=== PATIENT | male | born 1965 | race Caucasian/White ===

== ENCOUNTER 2017-08-20 11:32 | Emergency (ER) | END 2017-08-20 17:55 | disposition home or self-care (01) ==

== ENCOUNTER 2017-10-30 11:30 | Emergency (ER) | payer OTHER ==
[~2017-10-30] VITALS: Ht 167.6 cm; Wt 97.1 kg
[~2017-10-30 11:30] MED LIST: ALBU90I INH; ALBU90OI; ALBU90OI61 INH; AMLO5 PO; AMOCLA875 PO; BUSP15 PO; CEPH500 PO; CHLO25 PO; CYCL10 PO; DOCU100 PO; Desyrel150 MG PO; FAMO40 PO; FOLI1 PO; GABA300 PO; GABA600 PO; HYDACE25S PR; HYDACE5 PO; HYDMOR2 PO; HYDR1TAB94 PO; Hydrochlorothia25 MG PO; Hydrocodone-Ap1 EA23 PO; IBUP600 PO; IBUP800 PO; LISI5 PO; LORA10ER PO; LOSARTAN POTAS100 MG PO; Librium25 MG PO; Lopressor 25 mg25 MG PO; Loratadine10 MG PO; METO50 PO; MULVITMIND PO; Multivitamin1 EAC2 PO; NAPR220 PO; NAPR500 PO; NASAL SPRAY; Norco 5-325 Ta1 EACH PO; OLME20 PO; OTC SINUS MEDS; OXYACE5T PO; OXYC5 PO; PROM25 PO; Percocet 10-321 EACH PO; RANI150 PO; RISP1 PO; SERT100 PO; SERT50 PO; SPIR25 PO; SULTRIDS PO; THIA100 PO; TRAM50 PO; TRAZ100 PO
[2017-10-30 12:11] LABS: BASOPHILS ABSOLUTE AUTO 0.05 K/mm3 (0.00-0.23); BASOPHILS PERCENT AUTO 1 % (0-2); EOSINOPHILS ABSOLUTE AUTO 0.01 K/mm3 (0.00-0.68); EOSINOPHILS PERCENT AUTO 0 % (0-6); Hematocrit 46.1 % (37.0-53.0); IMMATURE GRAN ABSOLUTE AUTO 0.02 K/mm3 (0.00-0.10); IMMATURE GRAN PERCENT AUTO 0 % (0-1); LYMPHOCYTES ABSOLUTE AUTO 2.19 K/mm3 (0.84-5.20); LYMPHOCYTES PERCENT AUTO 31 % (21-46); MONOCYTES ABSOLUTE AUTO 0.56 K/mm3 (0.16-1.47); MONOCYTES PERCENT AUTO 8 % (4-13); Mean Corpuscular HGB 33.7 pg (26.0-34.0); Mean Corpuscular HGB Conc 34.7 g/dL (31.5-36.5); Mean Corpuscular Volume 97 fL (80-100); NEUTROPHILS ABSOLUTE AUTO 4.34 K/mm3 (1.96-9.15); NEUTROPHILS PERCENT AUTO 61 % (41-73); Platelet Count 96 K/mm3 (150-400); RDW Standard Deviation 46.8 fL (35.1-46.3); Red Blood Cell Count 4.75 M/mm3 (4.30-5.90); White Blood Cell Count 7.17 K/mm3 (4.00-11.30)
[2017-10-30 12:52] LABS: Alanine Aminotransfer (ALT/SGP 66 U/L (12-78); Albumin/Globulin Ratio 0.9 (0.8-1.8); Alk Phos 105 U/L (50-136); Anion Gap 10 mmol/L (6-16); Aspartate Aminotrans (AST/SGOT 56 U/L (12-37); Bilirubin, Total 1.1 mg/dL (0.1-1.0); Blood Urea Nitrogen 12 mg/dL (8-24); Bun/Creatinine Ratio 13.1 (12.0-20.0); CO2, Blood 26 mmol/L (21-32); Calcium, Blood 8.6 mg/dL (8.5-10.1); Chloride, Blood 99 mmol/L (98-108); Creatinine, Blood 0.91 mg/dL (0.60-1.20); Globulin, Blood 4.3 g/dL (2.2-4.0); Glomerular Filtration Rate >60 (60-); Glucose, Blood 90 mg/dL (70-99); Potassium, Blood 3.9 mmol/L (3.5-5.5); Sodium, Blood 135 mmol/L (136-145); Total Protein, Blood 8.3 g/dL (6.4-8.2); Troponin I <0.015 ng/mL (0.000-0.040)
[2017-10-30] MEDS ORDERED: LISI20 PO (15:36)
== END 2017-10-30 16:00 | disposition home or self-care (01) ==
LOC: ER 11:30
PROVIDERS: Emergency Medicine
DX: I10 Essential (primary) hypertension (principal); F17.210 Nicotine dependence, cigarettes, uncomplicated
CPT/HCPCS: 36415; 80053; 84484; 85025; 93005; 93010; 96374; 99284-25; J0360

== ENCOUNTER 2018-03-28 09:43 | Emergency (ER) | payer OTHER ==
[~2018-03-28] VITALS: Ht 167.6 cm; Wt 97.1 kg
[~2018-03-28 09:43] MED LIST changes: -ALBU90OI; +ALBU90OI INH; -BUSP15 PO; +Buspirone HCl30 MG PO; +LISI20 PO
[2018-03-28 10:18] LABS: BASOPHILS ABSOLUTE AUTO 0.08 K/mm3 (0.00-0.23); BASOPHILS PERCENT AUTO 1 % (0-2); EOSINOPHILS ABSOLUTE AUTO 0.04 K/mm3 (0.00-0.68); EOSINOPHILS PERCENT AUTO 1 % (0-6); Hematocrit 46.8 % (37.0-53.0); Hemoglobin 16.3 g/dL (13.5-17.5); IMMATURE GRAN ABSOLUTE AUTO 0.02 K/mm3 (0.00-0.10); IMMATURE GRAN PERCENT AUTO 0 % (0-1); LYMPHOCYTES ABSOLUTE AUTO 2.17 K/mm3 (0.84-5.20); LYMPHOCYTES PERCENT AUTO 36 % (21-46); MONOCYTES ABSOLUTE AUTO 0.46 K/mm3 (0.16-1.47); MONOCYTES PERCENT AUTO 8 % (4-13); Mean Corpuscular HGB 33.7 pg (26.0-34.0); Mean Corpuscular HGB Conc 34.8 g/dL (31.5-36.5); Mean Corpuscular Volume 97 fL (80-100); Mean Platelet Volume 9.6 fL (9.1-12.4); NEUTROPHILS ABSOLUTE AUTO 3.25 K/mm3 (1.96-9.15); NEUTROPHILS PERCENT AUTO 54 % (41-73); Platelet Count 119 K/mm3 (150-400); RDW Coefficient Variation 13.2 % (11.7-14.2); RDW Standard Deviation 47.4 fL (35.1-46.3); Red Blood Cell Count 4.83 M/mm3 (4.30-5.90); White Blood Cell Count 6.02 K/mm3 (4.00-11.30)
[2018-03-28 10:31] LABS: Alanine Aminotransfer (ALT/SGP 96 U/L (12-78); Albumin, Blood 4.1 g/dL (3.4-5.0); Albumin/Globulin Ratio 0.9 (0.8-1.8); Alk Phos 101 U/L (50-136); Anion Gap 10 mmol/L (6-16); Aspartate Aminotrans (AST/SGOT 81 U/L (12-37); Blood Urea Nitrogen 6 mg/dL (8-24); Bun/Creatinine Ratio 7.7 (12.0-20.0); CO2, Blood 24 mmol/L (21-32); Chloride, Blood 100 mmol/L (98-108); Creatinine, Blood 0.78 mg/dL (0.60-1.20); Globulin, Blood 4.5 g/dL (2.2-4.0); Glomerular Filtration Rate >60 (60-); Glucose, Blood 117 mg/dL (70-99); Potassium, Blood 3.7 mmol/L (3.5-5.5); Sodium, Blood 134 mmol/L (136-145); Total Protein, Blood 8.6 g/dL (6.4-8.2)
[2018-03-28] MEDS ORDERED: CHLO25 PO (11:00)
[2018-03-29] MEDS ORDERED: RISP1 PO (17:46)
== END 2018-03-28 11:23 | disposition home or self-care (01) ==
LOC: ER 09:43
PROVIDERS: Emergency Medicine
DX: F10.239 Alcohol dependence with withdrawal, unspecified (principal); Z88.6 Allergy status to analgesic agent; Z88.8 Allergy status to other drugs, medicaments and biological substances; Z91.048 Other nonmedicinal substance allergy status; Z79.899 Other long term (current) drug therapy; I10 Essential (primary) hypertension; F17.210 Nicotine dependence, cigarettes, uncomplicated
CPT/HCPCS: 80053; 83690; 85025; 96361; 96374; 96375; 99285-25; J2060; J7030

== ENCOUNTER 2018-03-29 16:59 | Inpatient (IN) | payer OTHER ==
[~2018-03-29] VITALS: Ht 167.6 cm; Wt 100.5 kg
[2018-03-29 17:29] LABS: BASOPHILS ABSOLUTE AUTO 0.05 K/mm3 (0.00-0.23); BASOPHILS PERCENT AUTO 1 % (0-2); EOSINOPHILS ABSOLUTE AUTO 0.06 K/mm3 (0.00-0.68); EOSINOPHILS PERCENT AUTO 1 % (0-6); Hematocrit 51.3 % (37.0-53.0); IMMATURE GRAN ABSOLUTE AUTO 0.01 K/mm3 (0.00-0.10); IMMATURE GRAN PERCENT AUTO 0 % (0-1); LYMPHOCYTES ABSOLUTE AUTO 3.11 K/mm3 (0.84-5.20); LYMPHOCYTES PERCENT AUTO 50 % (21-46); MONOCYTES PERCENT AUTO 5 % (4-13); Mean Corpuscular HGB Conc 35.1 g/dL (31.5-36.5); Mean Corpuscular Volume 97 fL (80-100); Mean Platelet Volume 9.5 fL (9.1-12.4); NEUTROPHILS ABSOLUTE AUTO 2.66 K/mm3 (1.96-9.15); NEUTROPHILS PERCENT AUTO 43 % (41-73); Platelet Count 117 K/mm3 (150-400); RDW Coefficient Variation 12.9 % (11.7-14.2); RDW Standard Deviation 46.5 fL (35.1-46.3); Red Blood Cell Count 5.29 M/mm3 (4.30-5.90); White Blood Cell Count 6.19 K/mm3 (4.00-11.30)
[2018-03-29] MEDS ORDERED: RISP1 PO (17:46)
[2018-03-29 17:58] LABS: Alanine Aminotransfer (ALT/SGP 108 U/L (12-78); Albumin, Blood 4.4 g/dL (3.4-5.0); Albumin/Globulin Ratio 0.9 (0.8-1.8); Alk Phos 93 U/L (50-136); Anion Gap 14 mmol/L (6-16); Aspartate Aminotrans (AST/SGOT 94 U/L (12-37); Bilirubin, Total 0.5 mg/dL (0.1-1.0); Blood Urea Nitrogen 3 mg/dL (8-24); Bun/Creatinine Ratio 4.1 (12.0-20.0); CO2, Blood 21 mmol/L (21-32); Calcium, Blood 8.6 mg/dL (8.5-10.1); Chloride, Blood 102 mmol/L (98-108); Creatinine, Blood 0.72 mg/dL (0.60-1.20); Glomerular Filtration Rate >60 (60-); Glucose, Blood 115 mg/dL (70-99); Potassium, Blood 3.9 mmol/L (3.5-5.5); Salicylate 5.8 mg/dL (2.8-20.0); Sodium, Blood 137 mmol/L (136-145); Thyroxine (T4) 7.4 ug/dL (4.5-12.1); Total Protein, Blood 9.4 g/dL (6.4-8.2)
[2018-03-29 18:04] LABS: Ethanol (Alcohol), Blood, Med 364 mg/dL
[2018-03-29 18:05] LABS: Acetaminophen, Random <2.0 ug/mL (10.0-30.0)
[2018-03-29 22:15] LABS: U Amphetamine Screen Not Detected; U Barbituate Screen Not Detected; U Benzodiazapine Screen DETECTED; U Buprenorphine Screen Not Detected; U Cannabinoids Screen Not Detected; U Cocaine Screen Not Detected; U Methadone Screen Not Detected; U Methamphetamine Screen DETECTED; U Opiates Screen Not Detected; U Oxycodone Screen Not Detected; U Phencyclidine Screen Not Detected; U Propoxyphene Screen Not Detected
--- NOTE | 2018-03-29 23:33 | NUR ---
ADMIT RECEIVED FROM ER VIA GURNEY. AWAKE, BUT DROWSY. COOPERATIVE WITH CARE. MOVING ALL EXTREMITIES. C/O BACK PAIN, WELL GENERAL PAIN. MONITOR SHOWS NSR, RATE 70s. SBP 70s. 2LNC WITH SATS 94-95%. RESPIRATIONS EVEN AND UNLABORED. AFEBRILE. PT STATES THAT HE STILL HAS SUICIDAL IDEATION. STATES " SOON I CAN GET OUT OF HERE, I'M GOING TO FIND SOMETHING TO BASH MY HEAD AGAINST." ALSO STATES "I DON'T CARE WHAT YOU DO TO ME, I JUST WANT TO ." SITTER AT BEDSIDE. TREMORS NOTED IN UPPER EXTREMITIES. SKIN IS WARM AND DRY AT THIS TIME. DENIES NAUSEA. DENIES HEADACHE. DENIES HALLUCINATIONS, BUT SAYS THAT HE WAS HAVING THEM EARLIER. SEE ADMIT ASSESSMENT FOR FULL ASSESSMENT.
--- NOTE | 2018-03-30 01:40 | NUR ---
PAIN PT C/O 09/01 BACK PAIN AT THIS TIME. CALL TO DR. HAGER WITH COMPLAINT AND FOR UPDATE ON BP/STATUS. NEW ORDERS RECEIVED FOR PAIN MEDS AT THIS TIME.
[2018-03-30 04:14] LABS: Hematocrit 42.6 % (37.0-53.0); Hemoglobin 14.3 g/dL (13.5-17.5); Mean Corpuscular HGB 33.6 pg (26.0-34.0); Mean Corpuscular HGB Conc 33.6 g/dL (31.5-36.5); Mean Platelet Volume 9.9 fL (9.1-12.4); Platelet Count 101 K/mm3 (150-400); RDW Coefficient Variation 13.4 % (11.7-14.2); Red Blood Cell Count 4.25 M/mm3 (4.30-5.90); White Blood Cell Count 7.54 K/mm3 (4.00-11.30)
[2018-03-30 04:16] LABS: Mean Corpuscular Volume 100 fL (80-100)
[2018-03-30 04:57] LABS: Albumin, Blood 3.4 g/dL (3.4-5.0); Bilirubin, Total 0.9 mg/dL (0.1-1.0); Bun/Creatinine Ratio 3.2 (12.0-20.0); Calcium, Blood 7.3 mg/dL (8.5-10.1); Creatinine, Blood 1.87 mg/dL (0.60-1.20); Globulin, Blood 3.5 g/dL (2.2-4.0); Potassium, Blood 3.8 mmol/L (3.5-5.5)
[2018-03-30 05:22] LABS: Total Protein, Blood 6.9 g/dL (6.4-8.2)
--- NOTE | 2018-03-30 06:45 | NUR ---
SHIFT SUMMARY NO ACUTE CHANGES DURING NOC. SITTER AT BEDSIDE T/O SHIFT. PT SLEEPING WHEN UNDISTURBED. CONTINUES TO STATE SUICIDAL IDEATION/PLAN. DOES NOT ATTEMPT TO CLIMB OUT OF BED. COOPERATIVE WITH CARE. MEDICATED WITH PERCOCET 5/325MG PO X 1 FOR C/O BACK PAIN. BANANA BAG INFUSING @ 100CC/HR PER ORDER. CIWA 6. BP IMPROVING- SBP 80-100s. HR 70s. O2 @ 4LNC WHILE ASLEEP. WILL REPORT TO DAY SHIFT RN WHEN AVAILABLE.
--- NOTE | 2018-03-30 12:28 | NUR ---
REASSESSMENT: PT HAS BEEN RESTING IN BED THROUGHOUT THE MORNING. LUNGS ARE CLEAR, TAXONOMIST COUGH. STILL REQUIRING 2L/NC, 4 WHEN IN A DEEP SLEEP DUE TO SLEEP APNEA LIKE BREATHING PATTERN. SR, BP STABLE, SEE VITALS. HE COMPLAINS OF BACK PAIN, MEDICATING PER ORDERS. GETTING TO THE EOB TO VOID. HE DENIES ANY CURRENT SI, BUT DID STATE THAT THE THOUGHTS COME AND GO. CURRENTLY HAVING TELEPSYCH EVAL. CONTINUING TO MONITOR.
--- NOTE | 2018-03-30 16:30 | NUR ---
SHIFT SUMMARY: PT SPENT THE DAY RESTING IN BED OTHER THAN WHEN HE GOT UP AND TOOK A SHOWER WITH ASSISTANCE. HE HAS BEEN COOPERATIVE AND PLEASANT THROUGHOUT THE SHIFT. HE CONTINUES TO DENY SUICIDIAL IDEATION. HE HAD HIS TELEPSYCH EVAL WHICH RECOMMENDED ONGOING EVAL SINCE HE IS IN THE MIDDLE OF HIS WITHDRAWALS FROM ALCOHOL. HIS CIWAA SCORE HAS BEEN AROUND 12, CONTROLLED WITH SCHEDULED LIBRIUM AND PRN ATIVAN. HE CONTINUES TO BE ALERT AND ORIENTED, LUNGS CLEAR, 2L/NC WHILE AWAKE, SR AND BP STABLE, SEE VITALS. HE IS VOIDING WITHOUT DIFFICULTY. HIS GIRLFRIEND CALLED AND HE GAVE OK FOR HER TO RECEIVE INFORMATION SO SHE WAS GIVEN AN UPDATE.
--- NOTE | 2018-03-30 20:10 | NUR ---
PT RESTING IN BED. IS A/O AND COOPERATIVE. HAS 1:1 SITTER. DENIES SUICIDAL IDEATION. STATES HE HAS SOME VISUAL DISTURBANCES AT TIMES BUT NOT SURE IF THE LIGHTING IN THE ROOM IS CAUSING SOME OF IT. HAS MODERATE TREMORS THAT MAKES HIM A LITTLE UNSTEADY ON FEET AND SHAKES WHEN DRINKING LIQUIDS. GAVE PRN LIBRIUM. OTHERWISE PT STATES HE DOES NOT FEEL OVERLY ANXIOUS. C/O PAIN IN BACK, GAVE OXYCODONE. HYPERTENSIVE, GAVE HYDRALAZINE. NO SIGN OF DISTRESS.
--- NOTE | 2018-03-31 06:05 | NUR ---
SUMMARY PT RESTING IN BED. A/O X4. DENIES SUICIDAL IDEATION T/O THE NIGHT. TREMORS SEEM TO HAVE IMPROVED AND CIWA 6-9. HAVE BEEN GIVING LIBRIUM SCHEDULED AND PRN. BP HAS IMPROVED AFTER GETTING HYDRALAZINE 1X. NO SIGN OF DISTRESS NO REQUESTS. 1:1 SITTER.
--- NOTE | 2018-03-31 08:33 | NUR ---
CALLED AND LEFT MESSAGE AT [facility] TO RETREIVE AN ACCURATE MEDICATION LIST.
--- NOTE | 2018-03-31 09:51 | NUR ---
ASSUMED CARE: REPORT RECEIVED FROM EVA Carcamo RN. ASSUMED CARE OF THIS PT AT APPROX 0700. ROUNDING COMPLETE, PT HAS REQUEST FOR PAIN MEDS THIS AM. MEDS PER EMAR. HE VERBALIZES DESIRE TO GO HOME TODAY, [place] TO MED FLOOR IS DISCUSSED THE PT IS NOW MED STATUS. 1:1 SITTER REMAINS IN PT ROOM. FACESHEET HAS BEEN FAXED TO ED FOR MIDDLEKAUF CONSULT TODAY. 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 WILL CONTINUE TO MONITOR & UPDATE NEEDED.
[2018-03-31] MEDS ORDERED: AMLO10 PO (14:49)
[2018-03-31] MEDS ORDERED: CLARITIN10 MG PO (14:49)
[2018-03-31] MEDS ORDERED: HYDR-86 PO (14:50)
--- NOTE | 2018-03-31 16:55 | NUR ---
CALL TO PROVIDER: CALL TO DR. ALVAREZ REGARDING PT's INCREASING BP. HOME MEDS NOW ORDERED. WILL CONTINUE TO MONITOR & UPDATE NEEDED.
--- NOTE | 2018-03-31 17:45 | NUR ---
DR. MARY CONSULT: DR. MARY IN ROOM TO SEE PT & ORDERS HAVE BEEN PLACED. PT IS NO LONGER IN NEED OF 1:1 SITTER FOR SI & HAS BEEN CLEARED OF THIS. DR. MARY HAS SIGNED OFF & STS THE PT MAY GO HOME TOMORROW IF CLEARED BY HOSPITALIST. WILL CONTINUE TO MONITOR & UPATE NEEDED.
--- NOTE | 2018-03-31 18:07 | NUR ---
SHIFT SUMMARY: NO ACUTE CHANGES SINCE INITIAL ASSESSMENT. PT A&O, COOPERATIVE W/ CARE. CIWA SCORES HAVE RANGED FROM 5-7 TODAY, NO PRN MEDS HAVE BEEN GIVEN FOR ETOH W/D. MEDS PER EMAR FOR CONTINUED C/O CHRONIC BACK PAIN & ACUTE HEAD/NOSE PAIN. PT STS "IT FEELS LIKE SOMEONE HIT ME IN THE HEAD W/ A BASEBALL BAT," BUT THAT MEDS ARE BEGINNING TO HELP MORE. REMAINS HYPERTENSIVE, MEDS PER EMAR W/ LITTLE IMPROVEMENT NOTED AT THIS TIME. PT STS SBP IN 200's IS "NORMAL" FOR HIM AT HOME. HE IS VOIDING W/O DIFFICULTY & ABLE TO USE TOILET W/ SBA. WILL CONTINUE TO MONITOR & REPORT OFF TO ONCOMING RN.
--- NOTE | 2018-03-31 19:15 | NUR ---
ASSUMING CARE OF PT THIS TIME. PT REPORT RECEIVED AT BEDSIDE WITH OFFGOING NURSES, MAGALI RN AND TRINITY RN. PT AMBULATING IN ROOM UPON ENTERING THE ROOM. VS STABLE - SEE VS FS. PT DOES NOT APPEAR TO BE IN DISTRESS AT THIS TIME. WILL REVIEW PLAN OF CARE.
--- NOTE | 2018-03-31 19:30 | NUR ---
ASSESSMENT PT CALM, QUIET, COOPERATIVE, SLIGHT ANXIETY AND AGITATION NOTED, WITHDRAWN, FLAT AFFECT, RESPONDS TO VERBAL STIMULI, SPONT OPENS EYES, SLOW TO RESPOND, OTHERWISE TALKS AND ANSWERS QUESTIONS APPROPRIATELY. CHRONIC N/T TO FINGERS R/T CARPAL TUNNEL. OTHERWISE, SENSATION INTACT. PT MOJICA. NO WEAKNESS NOTED. PT TURNS SELF. PT AMBUALTES INDEPENDENTLY. PT C/O CHRONIC BAKC PAIN - MEDICATED WITH PAIN MEDS PER PHYSICIAN'S ORDFER / UTILIZED NONPHARM METHODS. CIWA 5. WILL CONT TO ASSESS CIWA FOR ETOH W/D. PT DENIES SI. LUNGS CLEAR, LOWER LOBES DIMINIHSED. SHALLOW BREATHING. PT ON RA. OXY SAT >90%. RR 16. DENIES SOB. NO SOB WITH EXERTION. OCC NONPRODUCTIVE COUGH. AFEBRILE. HR 80'S. BP STBALE - SEE VS FS. STRONG PULSES. WARM, PINK SKIN. ACTIVE BT X4 QUADRANTS. ABD SOFT, NONTENDER, MOD DIST. NO N/V. NO BM. PT TOLERATING REGULAR DIET. PT VOIDS. PT HAS BATHROOM PRIVELEGES. PIV X1 - SL.
--- NOTE | 2018-03-31 19:55 | NUR ---
CELSO MANCILLA PER PT, "I SMOKE 1 TO 1.5 PACKS OF CIGARRATES A DAY". PT REQUESTED A NICOTINE PATCH. INFORMED CELSO MANCILLA OF PT'S REQUEST FOR A NICOTINE PATCH. CELSO MANCILLA ORDERED A NICOTINE PATCH AT THIS TIME. WAITING FOR VERIFICATION OF MEDICATION FROM PHARMACY AT THIS TIME.
--- NOTE | 2018-03-31 23:30 | NUR ---
PT CARE INCREASED ANXIETY, AGITATION, AND CONFUSION NOTED. PT A&O ONLY TO SELF, FOLLOWS COMMANDS. FLAT AFFECT, WITHDRAWN, SLOW TO RESPOND. PT ATTEMPTING TO LEAVE HOSPITAL AT THIS TIME. THIS RN PROVIDED EDUCATION ABOUT ETOH W/D AND THE CARE PROVIDED AT HOSPITAL'S FOR ETOH W/D. PT WILLING TO STAY AT [facility] UNTIL MORNING. INCREASING CIWA - SEE CIWA. SCHEDULED AND PRN LIBRIUM ADMINISTERED. ATIVAN PRN ADMINISTERED. PT DENIES SI. UNSTEADY GAIT AT TIMES. PT LAYING IN BED. FALL RISK PRECAUTIONS. BED ALARM ON.
--- NOTE | 2018-04-01 03:00 | NUR ---
DR. STRICKLAND / PT CARE INCREASED ANXIETY, AGITATION, CONFUSION, DIAPHORESIS NOTED. PT A&O ONLY TO SELF, FOLLOWS COMMANDS. FLAT AFFECT, WITHDRAWN, SLOW TO RESPOND. PT ATTEMPTING TO GET OOB. MIAN RN, DENY RN, AND FLORA RN AT BEDSIDE. PT CONT TO REFUSE TO GET BACK IN BED. PT HAS UNSTEADY GAIT. PT CONT TO BECOME MORE AGITATED AND YELLING AT STAFF. SECURITY CALLED TO BEDSIDE. INOCENCIO VEST ORDERED BY DR. STRICKLAND. INOCENCIO VEST PLACED. INCREASING CIWA SCORES NOTED DESPITE ADMINSITERING LIBRIUM AND ATIVAN. ALONDRA, EMPLOYMENT SECURITY OFFICER CALLED DR. STRICKLAND AT THIS TIME FOR PT UPDATE. DR. STRICKLAND ORDERED ICU STATUS, TELE, AND PRECEDEX DRIP FOR ETOH W/D. WAITING FOR MEDICATION FROM PHARMACY AT THIS TIME. PT ATTEMPTING TO UNDO INOCENCIO VEST BY LEANING OVER SIDE RAILS. PT PULLING AT LINES/CORDS/TUBES. DR. STRICKLAND ORDERED BILAT WRIST RESTRAINTS. PT PLACED IN BILAT WRIST RESTRAINTS AT THIS TIME. WILL CONT TO MONTIOR CIWA AND WILL TITRATE PRECEDEX DRIP TO EFFECT.
--- NOTE | 2018-04-01 04:52 | NUR ---
SHIFT ASSESSMENT INCREASED ANXIETY, AGITAION, CONFUSION, DIAPHORSIS NOTED T/O SHIFT. PT A&O X4 AT BEGINNING OF THE SHIFT. PT CURRENTLY A&O ONLY TO SELF, FOLLOWS COMMANDS. FLAT AFFECT, WITHDRAWN, SLOW TO RESPOND, SPONT OPENS EYES, RESPONDS TO VERBAL STIMULI. CHRONIC N/T TO FINGERS D/T CARPAL TUNNEL. OTHERWISE, SENSATION INTACT. INCREASED TREMORS NOTED T/O SHIFT. OCC AUTDITORY HALLUCINATIONS. PT MOJICA. INCREASED WEAKNESS NOTED OF BLE'S. UNSTEADY GAIT. INCREASED RISK OF FALLS. CONT FALL RISK PRECAUTIONS. BED ALARM ON. SIDE RAILS UP. PT TURNS SELF IN BED. PT AMBUALTED INDEPENDENTLY IN ROOM AT BEGINNING OF THE SHIFT, BUT REQUIRED INCREASING ASSISTANCE WITH AMBULATION T/O SHIFT. PT C/O CHRONIC BACK PAIN T/O SHIFT. CONT TO ASESS FOR PAIN/DISCOMFORT AND MEDICATED WITH PAIN MEDICATIONS T/O SHIFT. INCREASING CIWA T/O SHIFT. CONT TO ASSESS CIWA AND MEDICATED WITH LIBRIUM AND ATIVAN PER PHYSICIAN'S ORDER. PRECEDEX CURRENTLY 0.7 MCG/KG/HR - CONTINUED TO TITRATE TO EFFECT. PT CONT TO ATTEMPT TO GET OOB AND ROCKING BED. PT DENIES SI T/O SHIFT. PT IN BILAT WRIST RESTRAINTS AND INOCENCIO VEST. PT PULLING ON RESTRAINTS. LUNGS CLEAR, LOWER LOBES DIMINISHED. SHALLOW BREATHING. PT ON RA. OXY SAT 90% AND GREATER. RR 12 TO 20'S. NO SOB. OCC NONPRODUCTIVE COUGH. TMAX 99.9. CURRENTLY AFEBRILE. NSR TO ST. HR 70'S TO 100'S. INCREASED HR AND BP (SEE VS FS) NOTED WITH INCREASED AGITATION. OTHERWISE, HR AND BP STABLE T/O SHIFT. STRONG PULSES. WARM, PINK SKIN. ACTIVE BT X4 QUADRANTS. ABD SOFT, NONTENDER, MOD DIST. NO N/V. PT TOLERATED REGULAR DIET. PT INDEPENDENTLY VOIDED WITH BATHROOM PRIVELEGES. PT REQUIRES ASSISTANCE WITH URINAL TO VOID - YELLOW, CLEAR URINE NOTED. PIV X2. NS TKO AT 10 ML/HR. WILL CONT TO MONITOR PT AND WILL PROVIDE BEDSIDE REPORT TO ONCOMING NURSE THIS AM.
--- NOTE | 2018-04-01 05:20 | NUR ---
DR. MARCO A STRICKLAND IN ICU AT THIS TIME. INCREASING CIWA NOTED. MEDICATED WITH LIBRIUM AND ATIVAN PER PHYSICIAN'S ORDER. PRECEDEX 0.7 MCG/KG/HR. UPDATED DR. STRICKLAND REGARDING PT'S STATUS. DR. STRICKLAND CHANGED THE DOSAGE OF PRECEDEX DRIP TO BE TITRATED TO A MAX OF 1.4 MCG/KG/HR IF INDICATED. WILL CONT TO TITRATE PRECEDEX DRIP TO EFFECT.
[2018-04-01 08:18] LABS: BASOPHILS ABSOLUTE AUTO 0.02 K/mm3 (0.00-0.23); BASOPHILS PERCENT AUTO 0 % (0-2); EOSINOPHILS PERCENT AUTO 0 % (0-6); Hematocrit 38.9 % (37.0-53.0); Hemoglobin 13.4 g/dL (13.5-17.5); IMMATURE GRAN ABSOLUTE AUTO 0.02 K/mm3 (0.00-0.10); IMMATURE GRAN PERCENT AUTO 0 % (0-1); LYMPHOCYTES ABSOLUTE AUTO 1.57 K/mm3 (0.84-5.20); LYMPHOCYTES PERCENT AUTO 31 % (21-46); MONOCYTES ABSOLUTE AUTO 0.43 K/mm3 (0.16-1.47); MONOCYTES PERCENT AUTO 9 % (4-13); Mean Corpuscular HGB 33.9 pg (26.0-34.0); Mean Corpuscular HGB Conc 34.4 g/dL (31.5-36.5); Mean Corpuscular Volume 99 fL (80-100); Mean Platelet Volume 10.4 fL (9.1-12.4); NEUTROPHILS ABSOLUTE AUTO 2.99 K/mm3 (1.96-9.15); NEUTROPHILS PERCENT AUTO 60 % (41-73); Platelet Count 67 K/mm3 (150-400); RDW Coefficient Variation 12.8 % (11.7-14.2); RDW Standard Deviation 46.1 fL (35.1-46.3); Red Blood Cell Count 3.95 M/mm3 (4.30-5.90); White Blood Cell Count 5.03 K/mm3 (4.00-11.30)
[2018-04-01 08:29] LABS: International Normalized Ratio 1.1; Prothrombin Time Results 11.3 Sec (9.7-11.5)
[2018-04-01 08:37] LABS: Anion Gap 8 mmol/L (6-16); Blood Urea Nitrogen 11 mg/dL (8-24); Bun/Creatinine Ratio 13.2 (12.0-20.0); CO2, Blood 25 mmol/L (21-32); Calcium, Blood 9.1 mg/dL (8.5-10.1); Chloride, Blood 100 mmol/L (98-108); Creatinine, Blood 0.84 mg/dL (0.60-1.20); Glomerular Filtration Rate >60 (60-); Glucose, Blood 105 mg/dL (70-99); Potassium, Blood 3.8 mmol/L (3.5-5.5); Sodium, Blood 133 mmol/L (136-145)
--- NOTE | 2018-04-01 13:23 | NUR ---
REASSESSMENT: PT IS DROWSY DUE TO THE PRECEDEX, BUT WAKES WITH VERBAL STIMULI. HE IS ORIENTED TO PERSON ONLY. CIWAA AROUND 12. HE REMAINS IN RESTRAINTS DUE TO TRYING TO GET OUT OF BED WHENEVER THE RESTRAINTS ARE TAKEN OFF. HE WAS MORE COOPERATIVE AT LUNCH WHEN ON WRIST RESTRAINT WAS REMOVED SO HE COULD EAT WITH SUPERVISION, BUT STILL CONFUSED. PRECEDEX HAS BEEN TITRATED DOWN THIS SHIFT, SEE CHARTING. 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 LEFT VM FOR PT'S HAT FORMING MACHINE FEEDER TO CALL UNIT. OTHERWISE NO CHANGES FROM EARLIER ASSESSMENT. CONTINUING TO MONITOR.
--- NOTE | 2018-04-01 16:58 | NUR ---
SHIFT SUMMARY: PT HAS BEEN RESTING IN BED THROUGHOUT THE SHIFT. THIS AFTERNOON HE STARTED TO GET AGITATED WHEN THE PRECEDEX WAS TITRATED DOWN TO 0.3MCG/KG/MIN, DEMANDING TO BE LET OUT OF RESTRAINTS SO HE COULD GET DRESSED AND GO HOME. REASONING EXPLAINED FOR RESTRAINTS AND PT BEING IN HOSPITAL, BUT PT REMAINED AGITATED AND CONFUSED SO PRECEDEX TURNED BACK UP TO 0.4MCG/KG/MIN. OTHER THAN THAT THERE HAS BEEN NO CHANGES FROM EARLIER ASSESSMENTS. REMAIN ON RA, SR, BP STABLE, SEE VITALS. VOIDING IN THE URINAL WITH ASSISTANCE. CONTINUING TO MONITOR.
--- NOTE | 2018-04-01 21:43 | NUR ---
CARE ASSUMED REPORT RECEIVED, CARE ASSUMED AT 1900. PT SEDATED WITH PRECEDEX, AROUSES TO VERBAL STIMULI AND IS APPROPRIATE AND COOPERATIVE. INOCENCIO VEST RESTRAINT FOR PATIENT SAFETY. VITALS STABLE. SEE SHIFT ASSESSMENT.
--- NOTE | 2018-04-02 06:30 | NUR ---
SUMMARY THROUGHOUT NIGHT PT HAS HAD STABLE CIWA WITH PRECEDEX. CALM AND COOPERATIVE WITH CARE. PT INCREASINGLY ORIENTED NIGHT HAS PROGRESSED. SEE ASSESSMENTS. VITALS STABLE. 02 SAT'S DECREASE WITH DEEP SLEEP BUT IMPROVE WHEN AROUSED WITH VERBAL STIMULI. SCHEDULED LIBRIUM ADMIN. NO LORAZEPAM REQUIRED. THIS MORNING PRECEDEX TURNED OFF TO ASSESS WITHDRAW. AT THIS POINT, NO CHANGES TO CIWA.
--- NOTE | 2018-04-02 07:30 | NUR ---
ASSUMED CARE OF PATIENT; SEE ASSESSMENT CHARTING FOR DETAILS. PATIENT AWAKE; ANXIOUS TO RETURN HOME. DR. ALVAREZ ARRIVED AND WANTS INOCENCIO RESTRAINTS REMOVED/DC'D AND GET PATIENT OOB AND MOBILE WELL EATING; IF EVERYTHING ADEQUATE CAN BE DISCHARGED TO HOME. IV SITES, X2, INTACT AND SALINE LOCKED. CIWA LEVEL < 5 AND PATIENT COOPERATIVE.
--- NOTE | 2018-04-02 10:25 | NUR ---
Patient walked with RN. Set patient up to brush teeth and give a bath. Patient wanted to give himself a bath and get dressed to go home. RN notified. Will keep an eye on patient as he gets ready to leave.
--- NOTE | 2018-04-02 12:25 | NUR ---
DISCHARGED TO HOME; PATIENT HAS OVER $30.00 IN HIS PANTS POCKETS; PLANS TO WALK TO BUS STOP AND IT WILL TAKE HIM TO RIDDLE WHERE HE RESIDES WIH HIS SIGNIFICANT OHER. HQW NO QUALMS RE: TO BUSTOP (A FEW BLOCKS AWAY). DISCHARGE INSTRUCTIONS GIVEN AND (MEDS, DX, F/U APPTS.,ETC.). DRESSED IN CLOTHES WORN TO THE HOSPITAL (PANTS, SOCKS, BOOTS, UNDERWEAR AND SHIRT; NO COAT).
== END 2018-04-02 12:25 | disposition home or self-care (01) | DRG 896 ==
LOC: ER 16:59 → EOR 17:00 → ICUW 17:00 → ER 17:00 → ICUW 17:01 → EOR 23:32 → ICUW 23:33 → EOR 23:33 → ICUW 23:33
PROVIDERS: Emergency Medicine; Hospitalist; ADMIT Internal Medicine
DX: F10.231 Alcohol dependence with withdrawal delirium (principal); G92 Toxic encephalopathy; R45.851 Suicidal ideations; F33.9 Major depressive disorder, recurrent, unspecified; Z78.1 Physical restraint status; F10.229 Alcohol dependence with intoxication, unspecified; S80.212A Abrasion, left knee, initial encounter; Z23 Encounter for immunization; M54.2 Cervicalgia; I10 Essential (primary) hypertension; S00.01XA Abrasion of scalp, initial encounter; W19.XXXA Unspecified fall, initial encounter; W22.09XA Striking against other stationary object, initial encounter; G89.4 Chronic pain syndrome; F15.90 Other stimulant use, unspecified, uncomplicated; Y90.8 Blood alcohol level of 240 mg/100 ml or more; N28.9 Disorder of kidney and ureter, unspecified; M25.462 Effusion, left knee; Z88.6 Allergy status to analgesic agent
CPT/HCPCS: 36415; 70450; 72125; 73562-LT; 80048; 80053; 84436; 84443; 85025; 85027; 85610; 90686; 96365; 99285-25; G0008; G0480; J0360; J1650; J2060; J2405; J3411; J3475; J7030; J7042; J7050

== ENCOUNTER → 2018-11-26 | Outpatient (CLI) | payer OTHER ==
[~2018-11-26] MED LIST changes: +AMLO10 PO; +CLARITIN10 MG PO; +HYDR-86 PO; +LEVO-T50 MCG PO
[2018-11-26 18:36] LABS: BASOPHILS ABSOLUTE AUTO 0.03 K/mm3 (0.00-0.23); BASOPHILS PERCENT AUTO 0 % (0-2); EOSINOPHILS PERCENT AUTO 0 % (0-6); Hemoglobin 15.3 g/dL (13.5-17.5); IMMATURE GRAN ABSOLUTE AUTO 0.03 K/mm3 (0.00-0.10); IMMATURE GRAN PERCENT AUTO 0 % (0-1); LYMPHOCYTES ABSOLUTE AUTO 1.87 K/mm3 (0.84-5.20); LYMPHOCYTES PERCENT AUTO 22 % (21-46); MONOCYTES ABSOLUTE AUTO 0.71 K/mm3 (0.16-1.47); MONOCYTES PERCENT AUTO 8 % (4-13); Mean Corpuscular HGB 33.7 pg (26.0-34.0); Mean Corpuscular HGB Conc 34.8 g/dL (31.5-36.5); Mean Corpuscular Volume 97 fL (80-100); Mean Platelet Volume 10.2 fL (9.1-12.4); NEUTROPHILS ABSOLUTE AUTO 5.82 K/mm3 (1.96-9.15); NEUTROPHILS PERCENT AUTO 69 % (41-73); Platelet Count 134 K/mm3 (150-400); RDW Coefficient Variation 13.3 % (11.7-14.2); RDW Standard Deviation 48.2 fL (35.1-46.3); Red Blood Cell Count 4.54 M/mm3 (4.30-5.90); White Blood Cell Count 8.46 K/mm3 (4.00-11.30)
[2018-11-26 19:24] LABS: Alanine Aminotransfer (ALT/SGP 44 U/L (12-78); Albumin, Blood 4.4 g/dL (3.4-5.0); Albumin/Globulin Ratio 1.1 (0.8-1.8); Alk Phos 77 U/L (50-136); Anion Gap 9 mmol/L (6-16); Aspartate Aminotrans (AST/SGOT 31 U/L (12-37); Bilirubin, Total 0.8 mg/dL (0.1-1.0); Blood Urea Nitrogen 14 mg/dL (8-24); Bun/Creatinine Ratio 17.2 (12.0-20.0); CO2, Blood 21 mmol/L (21-32); Calcium, Blood 9.3 mg/dL (8.5-10.1); Chloride, Blood 101 mmol/L (98-108); Creatinine, Blood 0.82 mg/dL (0.60-1.20); Globulin, Blood 4.1 g/dL (2.2-4.0); Glomerular Filtration Rate >60 (60-); Glucose, Blood 103 mg/dL (70-99); Sodium, Blood 131 mmol/L (136-145); Total Protein, Blood 8.5 g/dL (6.4-8.2)
== END | disposition home or self-care (01) ==
LOC: LAB SHORT 13:45 → LAB 13:45
DX: G60.9 Hereditary and idiopathic neuropathy, unspecified (principal)
CPT/HCPCS: 80053; 84443; 85025

== ENCOUNTER 2018-12-20 14:28 | Emergency (ER) | payer OTHER ==
[~2018-12-20] VITALS: Ht 167.6 cm; Wt 104.3 kg
[~2018-12-20 14:28] MED LIST changes: -LEVO-T50 MCG PO
[2018-12-20 14:42] LABS: BASOPHILS ABSOLUTE AUTO 0.04 K/mm3 (0.00-0.23); BASOPHILS PERCENT AUTO 1 % (0-2); EOSINOPHILS ABSOLUTE AUTO 0.03 K/mm3 (0.00-0.68); EOSINOPHILS PERCENT AUTO 0 % (0-6); Hematocrit 42.1 % (37.0-53.0); Hemoglobin 14.5 g/dL (13.5-17.5); IMMATURE GRAN ABSOLUTE AUTO 0.04 K/mm3 (0.00-0.10); IMMATURE GRAN PERCENT AUTO 1 % (0-1); LYMPHOCYTES ABSOLUTE AUTO 2.81 K/mm3 (0.84-5.20); LYMPHOCYTES PERCENT AUTO 40 % (21-46); MONOCYTES ABSOLUTE AUTO 0.51 K/mm3 (0.16-1.47); MONOCYTES PERCENT AUTO 7 % (4-13); Mean Corpuscular HGB 34.4 pg (26.0-34.0); Mean Corpuscular HGB Conc 34.4 g/dL (31.5-36.5); Mean Corpuscular Volume 100 fL (80-100); Mean Platelet Volume 9.8 fL (9.1-12.4); NEUTROPHILS ABSOLUTE AUTO 3.64 K/mm3 (1.96-9.15); NEUTROPHILS PERCENT AUTO 52 % (41-73); Platelet Count 140 K/mm3 (150-400); RDW Coefficient Variation 13.2 % (11.7-14.2); Red Blood Cell Count 4.22 M/mm3 (4.30-5.90); White Blood Cell Count 7.07 K/mm3 (4.00-11.30)
[2018-12-20 14:56] LABS: Prothrombin Time Results 10.6 Sec (9.7-11.5)
[2018-12-20 14:59] LABS: Alanine Aminotransfer (ALT/SGP 42 U/L (12-78); Albumin, Blood 4.1 g/dL (3.4-5.0); Alk Phos 71 U/L (50-136); Anion Gap 8 mmol/L (6-16); Aspartate Aminotrans (AST/SGOT 31 U/L (12-37); Bilirubin, Total 0.3 mg/dL (0.1-1.0); Blood Urea Nitrogen 10 mg/dL (8-24); Bun/Creatinine Ratio 11.8 (12.0-20.0); CO2, Blood 21 mmol/L (21-32); Calcium, Blood 8.6 mg/dL (8.5-10.1); Chloride, Blood 105 mmol/L (98-108); Creatinine, Blood 0.84 mg/dL (0.60-1.20); Globulin, Blood 4.3 g/dL (2.2-4.0); Glomerular Filtration Rate >60 (60-); Glucose, Blood 97 mg/dL (70-99); Magnesium, Blood 2.4 mg/dL (1.6-2.4); Potassium, Blood 4.4 mmol/L (3.5-5.5); Sodium, Blood 134 mmol/L (136-145); Total Protein, Blood 8.4 g/dL (6.4-8.2)
[2018-12-20 15:20] LABS: Ethanol (Alcohol), Blood, Med 296 mg/dL
[2018-12-20 15:44] LABS: Bilirubin, Urine Neg (Neg); Blood, Urine Neg (Neg); Glucose Qualitative, Urine Neg (Neg); Ketones, Urine Neg (Neg); Leukocyte Esterase, Urine Neg (Neg); Nitrite, Urine Neg (Neg); Protein, Urine Neg (Neg); Urobilinogen, Urine NORM (Normal)
[2018-12-20 15:56] LABS: Appearance, Urine Clear (Clear); Color, Urine Yellow (P-Yellow); U Amphetamine Screen Not Detected; U Barbituate Screen Not Detected; U Methamphetamine Screen Not Detected
[2018-12-20 15:57] LABS: U Benzodiazapine Screen Not Detected; U Buprenorphine Screen Not Detected; U Cannabinoids Screen Not Detected; U Cocaine Screen Not Detected; U Methadone Screen Not Detected; U Opiates Screen Not Detected; U Oxycodone Screen Not Detected; U Phencyclidine Screen Not Detected; U Propoxyphene Screen Not Detected
[2018-12-20] MEDS ORDERED: LEVO-T50 MCG PO (16:14)
[2018-12-20] MEDS ORDERED: METO50 PO (16:15)
[2018-12-20] MEDS ORDERED: LISI20 PO (16:16)
== END 2018-12-20 16:35 | disposition left against medical advice (07) ==
LOC: ER 14:28
PROVIDERS: Emergency Medicine
DX: M54.2 Cervicalgia (principal); M54.5 Low back pain; M53.3 Sacrococcygeal disorders, not elsewhere classified; G89.29 Other chronic pain; F10.129 Alcohol abuse with intoxication, unspecified; Y90.8 Blood alcohol level of 240 mg/100 ml or more; R45.6 Violent behavior; I10 Essential (primary) hypertension; F17.210 Nicotine dependence, cigarettes, uncomplicated; Z91.048 Other nonmedicinal substance allergy status; Z88.6 Allergy status to analgesic agent; Z79.899 Other long term (current) drug therapy; W01.10XA Fall on same level from slipping, tripping and stumbling with subsequent striking against unspecified object, initial encounter
CPT/HCPCS: 70450; 71045; 72125; 80053; 81003; 83735; 85025; 85610; 93005; 93010; 99285-25; G0480

== ENCOUNTER → 2019-12-09 | Outpatient (CLI) | payer OTHER ==
[~2019-12-09] MED LIST changes: +ATOR20 PO; +BENZ100A PO; +FLUTICASONE PRO16 GM; +FLUTICASONE-SA1 EAC9 INH; +LEVO-T50 MCG PO; +NAPROXEN500 MG PO; +NEURONTIN300 MG PO; +TRAZ50 PO; +ZESTRIL40 M1 PO
== END | disposition home or self-care (01) ==
LOC: LAB SHORT 19:29 → LAB 19:29
DX: K26.5 Chronic or unspecified duodenal ulcer with perforation (principal)
CPT/HCPCS: 87070; 87075; 87205

== ENCOUNTER 2020-02-26 10:03 | Day surgery (SDC) | payer OTHER ==
[~2020-02-26] VITALS: Ht 167.6 cm; Wt 109.7 kg
--- NOTE | 2020-02-26 10:54 | NUR ---
02/26/20 Jerel4 Jeanie Villavicencio 1 TRY RIGHT HAND BLEW
== END 2020-02-26 12:27 | disposition home or self-care (01) ==
LOC: ORSCSDS 10:03
PROVIDERS: Internal Medicine Gastroenterology
PROC: 0DB78ZX Excision of Stomach, Pylorus, Via Natural or Artificial Opening Endoscopic, Diagnostic (ICD-10-PCS; principal; 2020-02-26 11:30)
DX: Z87.11 Personal history of peptic ulcer disease (principal); K21.9 Gastro-esophageal reflux disease without esophagitis; B19.20 Unspecified viral hepatitis C without hepatic coma; K74.60 Unspecified cirrhosis of liver; I10 Essential (primary) hypertension; F17.210 Nicotine dependence, cigarettes, uncomplicated; Z79.899 Other long term (current) drug therapy
CPT/HCPCS: 88305; 88342; J2250; J2704; J7120

== ENCOUNTER 2020-03-02 18:02 | Observation (INO) | payer OTHER ==
[~2020-03-02] VITALS: Ht 167.6 cm; Wt 109.0 kg
[2020-03-02] MEDS ORDERED: TAMSULOSIN HCL0.4 M1 PO (18:38)
[2020-03-02] MEDS ORDERED: OMEP20ER PO (18:38)
[2020-03-02 18:39] LABS: BASOPHILS ABSOLUTE AUTO 0.04 K/mm3 (0.00-0.23); BASOPHILS PERCENT AUTO 1 % (0-2); EOSINOPHILS PERCENT AUTO 0 % (0-6); Hemoglobin 13.5 g/dL (13.5-17.5); IMMATURE GRAN ABSOLUTE AUTO 0.07 K/mm3 (0.00-0.10); IMMATURE GRAN PERCENT AUTO 1 % (0-1); LYMPHOCYTES ABSOLUTE AUTO 3.86 K/mm3 (0.84-5.20); LYMPHOCYTES PERCENT AUTO 47 % (21-46); MONOCYTES PERCENT AUTO 7 % (4-13); Mean Corpuscular HGB 31.5 pg (26.0-34.0); Mean Corpuscular HGB Conc 32.9 g/dL (31.5-36.5); Mean Corpuscular Volume 96 fL (80-100); Mean Platelet Volume 10.1 fL (9.1-12.4); NEUTROPHILS ABSOLUTE AUTO 3.69 K/mm3 (1.96-9.15); NEUTROPHILS PERCENT AUTO 45 % (41-73); Platelet Count 179 K/mm3 (150-400); RDW Coefficient Variation 13.4 % (11.7-14.2); RDW Standard Deviation 47.8 fL (35.1-46.3); Red Blood Cell Count 4.29 M/mm3 (4.30-5.90); White Blood Cell Count 8.26 K/mm3 (4.00-11.30)
[2020-03-02 18:44] LABS: Source, Urine Voided
[2020-03-02 18:47] LABS: Bilirubin, Urine Neg (Neg); Blood, Urine 1+ (Neg); Glucose Qualitative, Urine Neg (Neg); Ketones, Urine Neg (Neg); Leukocyte Esterase, Urine Neg (Neg); Nitrite, Urine Neg (Neg); Protein, Urine Neg (Neg); Urobilinogen, Urine NORM (Normal)
[2020-03-02 18:49] LABS: Appearance, Urine Clear (Clear); Color, Urine Pale Yellow (P-Yellow)
[2020-03-02 18:55] LABS: Bacteria Not Seen /hpf; Red Blood Cells, Urine 0-2 /hpf (0-2); Squamous Epithelial Cells Not Seen /hpf (Few); White Blood Cells, Urine Not Seen /hpf (0-5)
[2020-03-02 18:58] LABS: Alanine Aminotransfer (ALT/SGP 38 U/L (12-78); Albumin, Blood 3.7 g/dL (3.4-5.0); Albumin/Globulin Ratio 0.8 (0.8-1.8); Alk Phos 112 U/L (50-136); Anion Gap 8 mmol/L (6-16); Aspartate Aminotrans (AST/SGOT 32 U/L (12-37); Bilirubin, Total 0.2 mg/dL (0.1-1.0); Blood Urea Nitrogen 14 mg/dL (8-24); Bun/Creatinine Ratio 14.6 (12.0-20.0); CO2, Blood 21 mmol/L (21-32); Calcium, Blood 9.1 mg/dL (8.5-10.1); Chloride, Blood 110 mmol/L (98-108); Creatinine, Blood 0.96 mg/dL (0.60-1.20); Globulin, Blood 4.7 g/dL (2.2-4.0); Glomerular Filtration Rate >60 (60-); Glucose, Blood 110 mg/dL (70-99); Potassium, Blood 3.9 mmol/L (3.5-5.5); Sodium, Blood 139 mmol/L (136-145); Total Protein, Blood 8.4 g/dL (6.4-8.2)
[2020-03-02 22:10] LABS: PCO2 Arterial 46.1 mmHg (35-45); PO2 Arterial 57.7 mmHg (80-100); pH Blood Arterial 7.32 (7.35-7.45)
[2020-03-02] MEDS ORDERED: Prednisone20 MG PO (22:29)
[2020-03-03 01:04] LABS: Influenza A, PCR Negative (NEGATIVE); Influenza B, PCR Negative (NEGATIVE); Resp Syncytial Virus, PCR Negative (NEGATIVE); SARS-Cov-2 (COVID-19) PCR, MMC Negative (NEGATIVE)
--- NOTE | 2020-03-03 01:34 | NUR ---
Transfer report from Alma HANNON RN on PT being admitted with hypoxia & neg covid 19 test in ER. Reported 1/2 PPD smoker with COPD & hep C alcoholism. Hx of alcohol withdrawl drinks average of 60 oz beer daily per report. Await admission.
[2020-03-03 04:55] LABS: BASOPHILS ABSOLUTE AUTO 0.02 K/mm3 (0.00-0.23); BASOPHILS PERCENT AUTO 0 % (0-2); EOSINOPHILS PERCENT AUTO 0 % (0-6); Hematocrit 42.7 % (37.0-53.0); Hemoglobin 14.2 g/dL (13.5-17.5); IMMATURE GRAN ABSOLUTE AUTO 0.03 K/mm3 (0.00-0.10); IMMATURE GRAN PERCENT AUTO 0 % (0-1); LYMPHOCYTES ABSOLUTE AUTO 0.73 K/mm3 (0.84-5.20); LYMPHOCYTES PERCENT AUTO 11 % (21-46); MONOCYTES ABSOLUTE AUTO 0.09 K/mm3 (0.16-1.47); MONOCYTES PERCENT AUTO 1 % (4-13); Mean Corpuscular HGB Conc 33.3 g/dL (31.5-36.5); Mean Corpuscular Volume 96 fL (80-100); Mean Platelet Volume 10.5 fL (9.1-12.4); NEUTROPHILS ABSOLUTE AUTO 5.93 K/mm3 (1.96-9.15); NEUTROPHILS PERCENT AUTO 87 % (41-73); Platelet Count 181 K/mm3 (150-400); RDW Coefficient Variation 13.5 % (11.7-14.2); Red Blood Cell Count 4.44 M/mm3 (4.30-5.90)
[2020-03-03 05:25] LABS: Anion Gap 7 mmol/L (6-16); Blood Urea Nitrogen 13 mg/dL (8-24); Bun/Creatinine Ratio 13.7 (12.0-20.0); CO2, Blood 23 mmol/L (21-32); Calcium, Blood 9.3 mg/dL (8.5-10.1); Chloride, Blood 110 mmol/L (98-108); Creatinine, Blood 0.95 mg/dL (0.60-1.20); Glomerular Filtration Rate >60 (60-); Glucose, Blood 139 mg/dL (70-99); Potassium, Blood 4.1 mmol/L (3.5-5.5); Sodium, Blood 140 mmol/L (136-145)
[2020-03-03 06:43] LABS: U Amphetamine Screen Not Detected; U Barbituate Screen Not Detected; U Benzodiazapine Screen Not Detected; U Buprenorphine Screen Not Detected; U Cannabinoids Screen Not Detected; U Cocaine Screen Not Detected; U Methadone Screen Not Detected; U Methamphetamine Screen Not Detected; U Opiates Screen Not Detected; U Oxycodone Screen Not Detected; U Phencyclidine Screen Not Detected; U Propoxyphene Screen Not Detected
--- NOTE | 2020-03-03 09:57 | NUR ---
PT IS HAVING CT SCAN
[2020-03-03] MEDS ORDERED: FLUTICASONE-SA1 EAC2 INH (11:48)
[2020-03-03] MEDS ORDERED: DOCU100 PO (11:50)
[2020-03-03] MEDS ORDERED: GUAI600T33 PO (11:50)
[2020-03-03] MEDS ORDERED: ACET325 PO (11:50)
[2020-03-03] MEDS ORDERED: LIDO700A20 TOP (11:51)
[2020-03-03] MEDS ORDERED: SENN187 PO (11:51)
[2020-03-03] MEDS ORDERED: AZIT250 PO (11:52)
--- NOTE | 2020-03-03 13:43 | NUR ---
DISCHARGE PT DISCHARGED TO HOME VIA [facility]. IV DCD. PT MEDICATIONS WAS SENT TO [facility]. DIEDRA DC'D. PAIN MEDICATION WAS GIVEN PRIOR DISCHARGE. PT HAS APPOINTMENT WITHIN A WEEK TO PCP; CALLED [facility]; THEY WILL CALL THE PT FOR APPOINTMENT. PT ALSO HAS TO BE SEEN BY DR JUSTIN METROPOLITAN EDITOR WITHIN 3-4 WEEKS; CALLED THE OFFICE AND LEFT A MESSAGE PROVIDED THE PT PHONE NUMBER. INSTRUCTED THE PT ABOUT THE NEW RX MEDICATIONS THAT WAS PRESCRIBED BY THE . PT ALSO EDUCATED ABOUT SMOKING; HOWEVER HE STATED THAT HE'S BEEN SMOKING FOR 45 YEARS AND WONT QUIT .
== END 2020-03-03 13:38 | disposition home or self-care (01) ==
LOC: ER 18:02 → MEDS 18:03
PROVIDERS: Emergency Medicine; ADMIT Internal Medicine
DX: J96.21 Acute and chronic respiratory failure with hypoxia (principal); J44.9 Chronic obstructive pulmonary disease, unspecified; I10 Essential (primary) hypertension; K21.9 Gastro-esophageal reflux disease without esophagitis; M54.9 Dorsalgia, unspecified; F17.210 Nicotine dependence, cigarettes, uncomplicated; G89.4 Chronic pain syndrome; F41.9 Anxiety disorder, unspecified; F32.9 Major depressive disorder, single episode, unspecified; E78.5 Hyperlipidemia, unspecified; E03.9 Hypothyroidism, unspecified; B18.2 Chronic viral hepatitis C; K74.60 Unspecified cirrhosis of liver; R10.9 Unspecified abdominal pain; Z91.09 Other allergy status, other than to drugs and biological substances; Z79.51 Long term (current) use of inhaled steroids; Z79.899 Other long term (current) drug therapy; Z20.828 Contact with and (suspected) exposure to other viral communicable diseases; Z23 Encounter for immunization
CPT/HCPCS: 0241U; 36415; 36600; 71045; 74176; 80048; 80053; 81001; 82803; 83690; 85025; 94640; 96372; 96374; 99285-25; A9270; A9270-GY; G0378; J1650; J2930

== ENCOUNTER 2020-11-24 17:50 | Emergency (ER) | payer OTHER ==
[~2020-11-24] VITALS: Ht 167.6 cm; Wt 117.9 kg
[~2020-11-24 17:50] MED LIST changes: +ACET325 PO; +AZIT250 PO; +FLUTICASONE-SA1 EAC2 INH; +GUAI600T33 PO; +LIDO700A20 TOP; +OMEP20ER PO; +Prednisone20 MG PO; +SENN187 PO; +TAMSULOSIN HCL0.4 M1 PO
[2020-11-24 18:49] LABS: BASOPHILS ABSOLUTE AUTO 0.05 K/mm3 (0.00-0.23); BASOPHILS PERCENT AUTO 1 % (0-2); EOSINOPHILS PERCENT AUTO 0 % (0-6); Hematocrit 40.2 % (37.0-53.0); Hemoglobin 13.9 g/dL (13.5-17.5); IMMATURE GRAN ABSOLUTE AUTO 0.07 K/mm3 (0.00-0.10); IMMATURE GRAN PERCENT AUTO 1 % (0-1); LYMPHOCYTES PERCENT AUTO 41 % (21-46); MONOCYTES ABSOLUTE AUTO 0.48 K/mm3 (0.16-1.47); MONOCYTES PERCENT AUTO 6 % (4-13); Mean Corpuscular HGB 34.2 pg (26.0-34.0); Mean Corpuscular HGB Conc 34.6 g/dL (31.5-36.5); Mean Corpuscular Volume 99 fL (80-100); NEUTROPHILS ABSOLUTE AUTO 3.95 K/mm3 (1.96-9.15); NEUTROPHILS PERCENT AUTO 51 % (41-73); Platelet Count 201 K/mm3 (150-400); RDW Coefficient Variation 13.3 % (11.7-14.2); RDW Standard Deviation 49.3 fL (35.1-46.3); Red Blood Cell Count 4.06 M/mm3 (4.30-5.90); White Blood Cell Count 7.75 K/mm3 (4.00-11.30)
[2020-11-24 19:19] LABS: International Normalized Ratio 1.06; Prothrombin Time Results 11.4 Sec (9.7-11.5)
[2020-11-24] MEDS ORDERED: SERT20L (19:20)
[2020-11-24 19:30] LABS: Free Thyroxine 1.01 ng/dL (0.70-1.60); Magnesium, Blood 2.4 mg/dL (1.6-2.4)
[2020-11-24 19:31] LABS: Albumin, Blood 3.1 g/dL (3.4-5.0); Albumin/Globulin Ratio 0.6 (0.8-1.8); Bilirubin, Total 0.3 mg/dL (0.1-1.0); Bun/Creatinine Ratio 4.5 (12.0-20.0); Calcium, Blood 8.3 mg/dL (8.5-10.1); Creatinine, Blood 1.32 mg/dL (0.60-1.20); Globulin, Blood 4.8 g/dL (2.2-4.0); Potassium, Blood 4.1 mmol/L (3.5-5.5); Total Protein, Blood 7.9 g/dL (6.4-8.2)
[2020-11-24 19:33] LABS: Thyroid Stimulating Hormone 1.72 uIU/mL (0.360-4.800); Triiodothyronine, Free 2.05 pg/mL (2.18-3.98)
[2020-11-24 19:43] LABS: Base Excess Venous -5.5 mmol/L; Bicarbonate Venous 20.1 mmol/L (24.0-30.0); PCO2 Venous 42.1 mmHg (38-42); PO2 Venous 136 mmHg (38-42)
[2020-11-24 23:26] LABS: U Amphetamine Screen DETECTED; U Barbituate Screen Not Detected; U Benzodiazapine Screen Not Detected; U Buprenorphine Screen Not Detected; U Cannabinoids Screen Not Detected; U Cocaine Screen Not Detected; U Methadone Screen Not Detected; U Methamphetamine Screen DETECTED; U Opiates Screen Not Detected; U Oxycodone Screen Not Detected; U Phencyclidine Screen Not Detected; U Propoxyphene Screen Not Detected
== END 2020-11-25 00:51 | disposition home or self-care (01) ==
LOC: ER 17:50
PROVIDERS: Student in an Organized Health Care Education/Training Program
DX: S00.83XA Contusion of other part of head, initial encounter (principal); F10.129 Alcohol abuse with intoxication, unspecified; R04.0 Epistaxis; K70.30 Alcoholic cirrhosis of liver without ascites; K76.9 Liver disease, unspecified; E87.1 Hypo-osmolality and hyponatremia; I10 Essential (primary) hypertension; F17.210 Nicotine dependence, cigarettes, uncomplicated; Z91.048 Other nonmedicinal substance allergy status; Z88.8 Allergy status to other drugs, medicaments and biological substances; Z79.899 Other long term (current) drug therapy; Z86.19 Personal history of other infectious and parasitic diseases; Y90.8 Blood alcohol level of 240 mg/100 ml or more; W18.30XA Fall on same level, unspecified, initial encounter
CPT/HCPCS: 36415; 70450; 71045; 72125; 80053; 82140; 82803; 83735; 83880; 84439; 84443; 84481; 85025; 85610; 93005; 93010; 96361; 96374; 99284-25; A9270; G0480; J1940; J7030

== ENCOUNTER 2022-07-29 19:26 | Inpatient (IN) | payer OTHER ==
[~2022-07-29] VITALS: Ht 167.6 cm; Wt 111.8 kg
[~2022-07-29 19:26] MED LIST changes: +ONDA4ODT MM; +SERT20L
[2022-07-29 21:04] LABS: BASOPHILS ABSOLUTE AUTO 0.03 K/mm3 (0.00-0.23); BASOPHILS PERCENT AUTO 0 % (0-2); EOSINOPHILS ABSOLUTE AUTO 0.01 K/mm3 (0.00-0.68); EOSINOPHILS PERCENT AUTO 0 % (0-6); Hematocrit 41.8 % (37.0-53.0); Hemoglobin 14.7 g/dL (13.5-17.5); IMMATURE GRAN ABSOLUTE AUTO 0.08 K/mm3 (0.00-0.10); IMMATURE GRAN PERCENT AUTO 1 % (0-1); LYMPHOCYTES ABSOLUTE AUTO 2.39 K/mm3 (0.84-5.20); LYMPHOCYTES PERCENT AUTO 25 % (21-46); MONOCYTES ABSOLUTE AUTO 0.58 K/mm3 (0.16-1.47); MONOCYTES PERCENT AUTO 6 % (4-13); Mean Corpuscular HGB 34.2 pg (26.0-34.0); Mean Corpuscular HGB Conc 35.2 g/dL (31.5-36.5); Mean Corpuscular Volume 97 fL (80-100); Mean Platelet Volume 9.9 fL (9.1-12.4); NEUTROPHILS ABSOLUTE AUTO 6.38 K/mm3 (1.96-9.15); NEUTROPHILS PERCENT AUTO 68 % (41-73); Platelet Count 192 K/mm3 (150-400); RDW Coefficient Variation 12.5 % (11.7-14.2); RDW Standard Deviation 44.5 fL (35.1-46.3); White Blood Cell Count 9.47 K/mm3 (4.00-11.30)
[2022-07-29 21:18] LABS: Prothrombin Time Results 10.5 Sec (9.7-11.5)
[2022-07-29 21:28] LABS: Albumin, Blood 3.7 g/dL (3.4-5.0); Albumin/Globulin Ratio 0.9 (0.8-1.8); Bilirubin, Total 0.2 mg/dL (0.1-1.0); Bun/Creatinine Ratio 9.6 (12.0-20.0); Calcium, Blood 8.5 mg/dL (8.5-10.1); Creatinine, Blood 0.84 mg/dL (0.60-1.20); Globulin, Blood 4.2 g/dL (2.2-4.0); Potassium, Blood 3.7 mmol/L (3.5-5.5); Total Protein, Blood 7.9 g/dL (6.4-8.2)
[2022-07-29 23:14] LABS: U Amphetamine Screen Not Detected; U Barbituate Screen Not Detected; U Benzodiazapine Screen Not Detected; U Buprenorphine Screen Not Detected; U Cannabinoids Screen DETECTED; U Cocaine Screen Not Detected; U Methadone Screen Not Detected; U Methamphetamine Screen Not Detected; U Opiates Screen Not Detected; U Oxycodone Screen Not Detected; U Phencyclidine Screen Not Detected; U Propoxyphene Screen Not Detected
[2022-07-29 23:55] VITALS: BP 146/101
--- NOTE | 2022-07-30 00:14 | NUR ---
PATIENT CAME ONTO THE FLOOR FROM ER TODAY AT 0000. RIGHT ANKLE FX PATIENT IS A&OX4. SBP IS HIGH BUT OTHERWISE VS ARE WNL AND IS ON RA. ASSESSED ALCOHOL WITHDRAWAL SYMPTOMS WITH CIWA SCORE OF 10. HIS RIGHT ANKLE IS IN A SPLINT THAT IS C/D/I. DENIES NUMBNESS OR TINGLING. CAN MOVE ALL FINGERS AND TOES WHEN ASKED. THREE SCRATCHES WERE NOTED ON THE RIGHT ABD SIDE THAT ARE OPEN TO AIR AND DRY. PATIENT REPORTED "I LIVE WITH MULTIPLE DOGS AT HOME AND ALWAYS SCRATCH ME". PATIENT ALSO HAS SCABS ON BOTH FOREARMS. PATIENT IS LAYING IN BED WITH RIGHT FOOT ELEVATED ON PILLOWS. BED ALARM IN PLACE A PRECAUTION. CALL LIGHT WITHIN REACH. THIS NURSE CALLED DR. GIFFORD FOR ALCOHOL WITHDRAWAL MEDICATIONS PRN AND TO HELP REDUCE HIS ELEVATED BP. DR. GIFFORD REPORTED HE WOULD PUT IN THE ORDERS.
[2022-07-30 03:45] VITALS: BP 155/104
[2022-07-30 03:55] LABS: BASOPHILS ABSOLUTE AUTO 0.05 K/mm3 (0.00-0.23); BASOPHILS PERCENT AUTO 1 % (0-2); EOSINOPHILS PERCENT AUTO 0 % (0-6); Hematocrit 38.9 % (37.0-53.0); Hemoglobin 13.5 g/dL (13.5-17.5); IMMATURE GRAN ABSOLUTE AUTO 0.08 K/mm3 (0.00-0.10); IMMATURE GRAN PERCENT AUTO 1 % (0-1); LYMPHOCYTES ABSOLUTE AUTO 2.69 K/mm3 (0.84-5.20); LYMPHOCYTES PERCENT AUTO 29 % (21-46); MONOCYTES PERCENT AUTO 9 % (4-13); Mean Corpuscular HGB 33.5 pg (26.0-34.0); Mean Corpuscular HGB Conc 34.7 g/dL (31.5-36.5); Mean Corpuscular Volume 97 fL (80-100); Mean Platelet Volume 9.5 fL (9.1-12.4); NEUTROPHILS ABSOLUTE AUTO 5.74 K/mm3 (1.96-9.15); NEUTROPHILS PERCENT AUTO 61 % (41-73); Platelet Count 164 K/mm3 (150-400); RDW Coefficient Variation 12.2 % (11.7-14.2); RDW Standard Deviation 43.8 fL (35.1-46.3); Red Blood Cell Count 4.03 M/mm3 (4.30-5.90); White Blood Cell Count 9.36 K/mm3 (4.00-11.30)
[2022-07-30 04:14] LABS: Albumin, Blood 3.4 g/dL (3.4-5.0); Albumin/Globulin Ratio 0.9 (0.8-1.8); Bilirubin, Total 0.3 mg/dL (0.1-1.0); Bun/Creatinine Ratio 9.7 (12.0-20.0); Calcium, Blood 8.2 mg/dL (8.5-10.1); Creatinine, Blood 0.82 mg/dL (0.60-1.20); Globulin, Blood 3.9 g/dL (2.2-4.0); Potassium, Blood 3.8 mmol/L (3.5-5.5); Total Protein, Blood 7.3 g/dL (6.4-8.2)
--- NOTE | 2022-07-30 05:33 | NUR ---
SHIFT SUMMARY: RIGHT ANKLE FX PATIENT WAS JUST EVALUATED FOR CIWA WITH A SCORE OF 11. ALCOHOL WITHDRAWAL SYMPTOMS HAVE BEEN MANAGED WITH PO LYBRIUM. BED ALARM ON A PRECAUTION. PAIN IN HIS RIGHT ANKLE HAS BEEN MANAGED WITH IV FENTANYL. PATIENT HAS A SPLINT ON THE RIGHT ANKLE WITH BILL WRAP IN PLACE THAT IS C/D/I AND ELEVATED ON PILLOWS. HE DENIES NUMBNESS AND TINGLING. CAN MOVE ALL FINGERS AND TOES WHEN ASKED. PATIENT WAS A 2 PERSON ASSIST TO BSC WITH FWW AND GAIT BELT WELL REMAINED NON WEIGHT BEARING TO RIGHT ANKLE DURING TRANSFERRING. PATIENT HAS BEEN NPO THROUGHOUT SHIFT. HE IS VOIDING, PASSING FLATUS, AND HAD A SMALL BM. PATIENT IS LAYING IN BED WITH CALL LIGHT IN REACH. PATIENT CALLS APPROPRIATELY. THE PLAN IS FOR DR. CHRISTY TO PERFORM AN ORIF TO THE RIGHT ANKLE LATER TODAY.
[2022-07-30 07:14] VITALS: BP 169/99
[2022-07-30 15:55] VITALS: BP 170/96
--- NOTE | 2022-07-30 17:43 | NUR ---
SHIFT SUMMARY PT A&OX4. R CLOSED ANKLE FRACTURE, SPLINT WITH BILL WRAP, C/D/I, NWB. PT KEPT NPO UNTIL 1699 AWAITING SURGERY. RECEIVED DINNER TRAY. SURGERY NOT PLANNED UNTIL SATURDAY. PT REPORTS PAIN "SHOOTING" UP HIS R LEG, MEDICATED PER EMAR. DUE TO HISTORY OF ALCOHOL MISUSE AND REPORT OF DRINKING BEER DAILY, PT ON ALCOHOL WITHDRAWAL PRECAUTIONS. CIWA SCORES INDICATE NEED FOR MEDICATION, MEDICATED PER EMAR. PT UP TO CHAIR WITH PT TODAY, 1 PERSON ASSIST. L SIDE ABDOMEN DISTENDED, PT STATES NORMAL. PT IN CHAIR WITH CALL LIGHT WITHIN REACH, WILL REPORT TO NOC NURSE.
[2022-07-30 19:47] VITALS: BP 171/94
[2022-07-30 20:30] VITALS: BP 154/79
[2022-07-31] VITALS (7 sets, daily range): BP systolic 150–216; BP diastolic 88–118
--- NOTE | 2022-07-31 05:25 | NUR ---
PATIENT SLEPT FOR MOST OF THE NIGHT IN RECLINER PER HIS REQUEST, IS ORIENTED X4 AT BASELINE, HOWEVER DID HAVE ONE INCREASED (12) CIWA SCORE WHERE HE COULD NOT ADD SERIAL NUMBERS NOR THE MONTH/DATE. PATIENTS TREATED PER MAY AND SCORES HAVE REMAINED AT 2 SINCE. R ANK;E DRESSING LEFT IN PLACE, AND CDI. PIV SL, AND TOLERATING ORAL INTAKE. NWB TO RLE, 2X ASSIST WITH FWW AND GAIT BELT, STAND PIVOT TO BSC. WILL CONT TO MONITOR.
--- NOTE | 2022-07-31 14:11 | NUR ---
PATIENT LYING IN BED WATCHING TV. HAS ADEQUIT PAIN CONTOL. DENIES SOB. CALL LIGHT IN REACH AND BED IN LOWEST POSITION.
[2022-07-31] MEDS ORDERED: ATROVENT HFA12.9 GM INH (16:10)
--- NOTE | 2022-07-31 16:19 | NUR ---
PATIENT LYING IN BED, PLACED AN ICEPACK ON RIGHT ANKLE FOR PAIN MANAGMENT. UNLABORED RR. CALL LIGHT WITHIN REACH.
[2022-07-31] MEDS ORDERED: MONT10T PO (16:20)
[2022-07-31] MEDS ORDERED: Trazodone HCl300 MG PO (16:24)
[2022-07-31] MEDS ORDERED: TRAZ150T57 PO (16:24)
[2022-07-31] MEDS ORDERED: FOLI1 PO (16:26)
[2022-07-31] MEDS ORDERED: LIDOCAINE1 EACH TOP (16:29)
[2022-07-31] MEDS ORDERED: PREG50 PO (16:32)
[2022-07-31] MEDS ORDERED: B-1100 M1 PO (16:33)
--- NOTE | 2022-07-31 16:37 | NUR ---
UPDATED HOME MED LIST AND NOTIFIED DR BAKER.
--- NOTE | 2022-07-31 16:54 | NUR ---
REVIEWED SN DOCUMENTATION TO THIS POINT IN SHIFT. TURNING OVER CARE OF PATIENT AND GUIDANCE OF STUDENT TO VIVIAN Montalvo RN CTA.
--- NOTE | 2022-07-31 17:10 | NUR ---
SHIFT SUMMARY PATIENT A&O X4 THROUGHOUT THE DAY. PRN CIWA SCORES RANGED FROM 1-9, WAS MEDICATED PER EMAR FOR CIWA SCORES. PATIENT WAS HYPERTENSIVE THROUGHOUT THE DAY AND WAS MEDICATED PER EMAR. GOT UP TO COMMODE TWICE WITH X2 ASSIST AND A WALKER. PAIN MANAGED WITH ICE TO AFFECTED AREA AND MEDICATION PER EMAR. PATIENT LYING IN BED, CALL LIGHT WITHIN REACH, BED IN LOWEST POSITION.
--- NOTE | 2022-07-31 19:14 | NUR ---
ASSUMED PRIMARY CARE OF PATIENT AT 1700 FROM KVNG BEARD RN. SUPERVISING STUDENT RN. REVIEWED ALL STUDENT DATAPOWER CONSULTANT AND AGREE WITH CHARTED ASSESSMENTS AND GIVEN MEDICATIONS.
[2022-08-01] VITALS (31 sets, daily range): BP systolic 102–198; BP diastolic 70–118
--- NOTE | 2022-08-01 06:28 | NUR ---
SHIFT SUMMARY PT A&Ox4, CALLS AND COMMUNCIATES NEEDS APPROPRIATELY. VITAL SIGNS STABLE. MANAGED PT's PAIN PER EMAR. CIWAs 8-10, MANAGED PER EMAR. PT NPO AT 0000. R ANKLE SPLINT REMAINED IN PLACE. PT 1-2 PERSON ASSIST TO BSC, USED URINAL AT BEDSIDE. NO OTHER EVENTS, WILL REPORT TO ONCOMING RN.
--- NOTE | 2022-08-01 13:46 | NUR ---
PT TO PROCEDURE AT THIS TIME VIA [facility].
--- NOTE | 2022-08-01 13:50 | NUR ---
Into [facility] via [facility]. History, Chart, Medications and Allergies reviewed before start of procedure.Splint and silverio wrap intact to Right lower extremity. Pt reports 8/10 right lower extremity pain. Lungs diminished in the bases, but sats>90% on ra and no noted sob. Pt reports frequent moist cough productive of thick, white sputum. Pt confirms npp status Pt voided prior to leaving room 212. Pt drinks 48 oz of beer daily and his last drink was on 07/30/22-see cideanne. BP 198/100-pt Metoprolol was held by primary RN this am. This RN contacted primary RN and requested that Metoprolol be given-see emar.
--- NOTE | 2022-08-01 14:03 | NUR ---
#20 TO LEFT AC-SITE CLEAR AND DRESSING C/D/I.
--- NOTE | 2022-08-01 16:11 | NUR ---
SHIFT SUMMARY PRIOR TO SURGERY PT REPORTED PAIN TOLERABLE WITHOUT MEDICATION, HE WOULD CALL APPROPRIATLY BUT WOULD ATTEMPT TO GET OUT OF BED ON HIS OWN TO AVOID "BOTHERING STAFF" SPOKE WITH HIM AT LENGTH ABOUT NEEDING TO CALL AND PLACED BED ALARM ON PATIENT. CIWA'S REMAINED AROUND 3 DURING SHIFT. MEDICATION PER EMAR. PT STILL IN SURGERY AT THIS TIME.
--- NOTE | 2022-08-01 18:02 | NUR ---
REPORT GIVEN TO RECIEVING ICU NURSE. BELONGINGS TAKEN TO ROOM
--- NOTE | 2022-08-01 18:04 | NUR ---
PT ADMITTED TO ICU AT 1730 S/P RIGHT ORIF. PT ARRIVED CONFUSED AND COMBATIVE, CIWA 34. PT APPEARS TO BE HALLUICINATING; SMOKING CIGARETTE, TALKING/YELLING TO PEOPLE WHO ARE NOT PRESENT. PT SWINGING FIST AT STAFF, MAKING FIST, UNABLE TO REDIRECT/CALM PT. UNABLE TO GET INITIAL BP D/T THRASHING IN BED. WORDS ARE SLURRED AND MOSTLY INCOMPREHENSIBLE. DR SMITH CALLED AND UPDATED. PRECEDEX ORDERED. ATIVAN 2MG GIVEN, FOLLOWED BY ADDITIONAL 2MG. PRECEDEX GTT STARTED AT 0.3MCG AND TITRATED UP TO 1.4MCG(ORDER OBTAINED). PT INCONTINENT OF URINE. PT HAS SCATTERED EXP WHEEZES TO UPPER LOBES. RT NOTIFIED. SATS 94% ON 3L 02 VIA N/C. PT IN SINUS RHYTHM 60-90'S WHEN ASLEEP. PT HYPERTENSIVE.
--- NOTE | 2022-08-01 19:07 | NUR ---
PT SLEEPING, SEDATED ON PRECEDEX AT 1.4MCG. PT REMAINS HYPERTENSIVE, HR AROUND 60. ABLE TO PLACE CONDOM CATH ON PT. RESP AROUND 16, SATS 95% ON 3L. REPORT GIVEN TO ONCOMING RN.
--- NOTE | 2022-08-01 19:16 | NUR ---
ASSUMPTION OF CARE PT IS S/P ORIF OF THE ORIF OF THE RIGHT ANKLE TODAY AND IS IN ETOH W/DRAWAL. PRECEDEX WAS AT 1.4, I HAVE DECREASED IT TO 0.8 DUE TO SOME BRADYCARDIA. PT IS SWEATING PROFUSELY AND HYPERTENSIVE W/BP 190/100S. PRN FENTANYL AND HYDRALIZINE GIVEN. PT COLOR IS ASHY AND HE IS VERY SEDATED AT THIS TIME. HE IS IN TUFF CUFFS AND WAS REPORTED TO BE COMBATIVE UPON ARRIVAL TO ICU. OXYGEN SAT ARE 95% ON 2L NC. PT HAS A CONDOM CATH IN PLACE. SINCE DECREASING PRECEDEX HR HAS INCREASED TO THE 70S, SR. BP IS NOW 163/92.
[2022-08-01 23:30] LABS: Source, Urine Foley catheter
[2022-08-01 23:42] LABS: Bilirubin, Urine Neg (Neg); Blood, Urine Neg (Neg); Glucose Qualitative, Urine Neg (Neg); Ketones, Urine 2+ (Neg); Leukocyte Esterase, Urine Neg (Neg); Nitrite, Urine Neg (Neg); Protein, Urine Neg (Neg); Urobilinogen, Urine NORM (Normal)
[2022-08-01 23:53] LABS: Appearance, Urine Clear (Clear); Color, Urine Pale Yellow (P-Yellow)
[2022-08-02] VITALS (49 sets, daily range): BP systolic 69–174; BP diastolic 54–99
[2022-08-02 03:39] LABS: BASOPHILS ABSOLUTE AUTO 0.01 K/mm3 (0.00-0.23); BASOPHILS PERCENT AUTO 0 % (0-2); EOSINOPHILS PERCENT AUTO 0 % (0-6); Hemoglobin 13.2 g/dL (13.5-17.5); IMMATURE GRAN ABSOLUTE AUTO 0.05 K/mm3 (0.00-0.10); IMMATURE GRAN PERCENT AUTO 1 % (0-1); LYMPHOCYTES ABSOLUTE AUTO 0.43 K/mm3 (0.84-5.20); LYMPHOCYTES PERCENT AUTO 6 % (21-46); MONOCYTES ABSOLUTE AUTO 0.25 K/mm3 (0.16-1.47); MONOCYTES PERCENT AUTO 3 % (4-13); Mean Corpuscular HGB 33.5 pg (26.0-34.0); Mean Corpuscular HGB Conc 34.7 g/dL (31.5-36.5); Mean Corpuscular Volume 96 fL (80-100); Mean Platelet Volume 10.2 fL (9.1-12.4); NEUTROPHILS ABSOLUTE AUTO 6.63 K/mm3 (1.96-9.15); NEUTROPHILS PERCENT AUTO 90 % (41-73); Platelet Count 141 K/mm3 (150-400); RDW Coefficient Variation 11.9 % (11.7-14.2); RDW Standard Deviation 42.5 fL (35.1-46.3); Red Blood Cell Count 3.94 M/mm3 (4.30-5.90); White Blood Cell Count 7.37 K/mm3 (4.00-11.30)
[2022-08-02 03:53] LABS: Anion Gap 6 mmol/L (6-16); Blood Urea Nitrogen 9 mg/dL (8-24); Bun/Creatinine Ratio 12.6 (12.0-20.0); CO2, Blood 23 mmol/L (21-32); Calcium, Blood 8.4 mg/dL (8.5-10.1); Chloride, Blood 108 mmol/L (98-108); Creatinine, Blood 0.71 mg/dL (0.60-1.20); Glomerular Filtration Rate 107 (60-); Glucose, Blood 158 mg/dL (70-99); Phosphorus, Blood 2.8 mg/dL (2.5-4.9); Sodium, Blood 137 mmol/L (136-145)
--- NOTE | 2022-08-02 05:35 | NUR ---
SHIFT SUMMERY PT CONTINUES ON PRECEDEX GTT AT O.8. IT WAS DECREASED FOR A SHORT PERIOD OF TIME TO 0.5 BUT PT BECAME VERY AGITATED AND RESTLESS, HE WAS NOT REDIRECTABLE W/BEHAVIORS. HE WAS ORIENTED TO HIS NAME, MONTH, AND YEAR. HE DID NOT KNOW WHERE HE WAS OR WHY HE WAS HERE. HE DID NOT REMEMBER THAT HE HAD A BROKEN ANKLE OR SURGERY. A GUAMAN CATHETER WAS PLACED FOR URINARY RETENTION. HYDRALAZINE WAS GIVEN TWICE FOR HYPERTENSION PER MD ORDER. 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 OXYGEN SAT 94% ON 2L NC.
--- NOTE | 2022-08-02 07:58 | NUR ---
CARE OF PT ASSUMED AT 0700. PT SLEEPING. PRECEDEX AT 0.8MCG FOR ACUTE ETOH W/D. DURING ASSESSMENT PT WOKE UP AND STATED HE WAS COLD. PT ANSWERED YES TO PAIN BUT UNABLE TO STATE WHERE, PT THEN QUICKLY FELL BACK TO SLEEP AND UNABLE TO ANSWER FURTHER QUESTIONS. PRECEDEX PLACED ON STANDBY TO EVALUATE PT. RIGHT ANKLE WITH SPLINT AND BILL WRAP ELEVATED ON PILLOWS. FOOT WARM AND PINK WITH 2+ PULSE TO D.P (P.T. COVERED W SPLINT). CAP REFILL WNL, SPO2 TO RIGHT 1ST TOE SHOWS GOOD WAVEFORM. ICE PLACED TO ANKLE OVER BILL WRAP. SATS 96% ON 3L VIA N/C. LUNGS CLEAR. PLAN: WILL DECREASE SEDATION TOLERATED, GOAL; OUT OF RESTRAINTS, EMILIANO GUAMAN, START PO MEDS/FOOD.
--- NOTE | 2022-08-02 08:47 | NUR ---
SHORTLY AFTER PRECEDEX OFF, PT WOKE UP. ABLE TO RE-ORIENT, CALM, APPROPRIATE, FOLLOWING COMMANDS. RESTRAINTS REMOVED. WARM BLANKETS PLACED, PT SHIVERING. C/O PAIN 3/10 TO RIGHT ANKLE; PO PAIN MEDS GIVEN. PT ABLE TO TAKE ALL PO MEDS. PRECEDEX DISCONNECTED. WILL REMOVE GUAMAN SHORTLY. BED ALARM ON. CALL LIGHT GIVEN TO PT. PT SPOKE TO HIS SISTER ON THE PHONE.
--- NOTE | 2022-08-02 09:14 | NUR ---
08/02/22 0914 Marian Begum VERIFICATIONS: EDIT CHART.
--- NOTE | 2022-08-02 10:21 | NUR ---
PT C/O PAIN TO RIGHT ANKLE 10/01, FENTANYL 25MCG IV GIVEN W SOME RELIEF. PT C/O BEING COLD; SHIVERING. SHAINA HUGGER PLACED. FOOD OFFERED, PT DECLINED AT THIS TIME. TAKING IN GOOD AMT OF PO WATER.
--- NOTE | 2022-08-02 10:40 | NUR ---
DR SMITH IN TO SEE PT. FULL UPDATE GIVEN.
--- NOTE | 2022-08-02 12:30 | NUR ---
DR CHRISTY IN TO SEE PT. PHYSICAL THERAPY ORDERED, OKAY FOR PT TO BE UP; NON-WEIGHT BEARING TO RIGHT FOOT.
--- NOTE | 2022-08-02 12:58 | NUR ---
BP TRENDING DOWN, MAP AROUND 60. PT ASYMPTOMATIC. PT AWAKE AND EATING LUNCH. DR SMITH CALLED AND UPDATED. IF BP DOES NOT IMPROVE OR IF BP CONTINUES TO DROP WILL GIVE BOLUS PER DR SMITH.
--- NOTE | 2022-08-02 14:46 | NUR ---
PT GIVEN 1L NS BOLUS FOR HYPOTENSION, PT RESPONDED WELL TO FLUIDS W MAPS >65.
[2022-08-03] VITALS (21 sets, daily range): BP systolic 95–145; BP diastolic 56–85
[2022-08-03 03:29] LABS: BASOPHILS ABSOLUTE AUTO 0.03 K/mm3 (0.00-0.23); BASOPHILS PERCENT AUTO 0 % (0-2); EOSINOPHILS PERCENT AUTO 0 % (0-6); Hematocrit 32.7 % (37.0-53.0); Hemoglobin 11.2 g/dL (13.5-17.5); IMMATURE GRAN ABSOLUTE AUTO 0.08 K/mm3 (0.00-0.10); IMMATURE GRAN PERCENT AUTO 1 % (0-1); LYMPHOCYTES ABSOLUTE AUTO 2.33 K/mm3 (0.84-5.20); LYMPHOCYTES PERCENT AUTO 26 % (21-46); MONOCYTES ABSOLUTE AUTO 0.79 K/mm3 (0.16-1.47); MONOCYTES PERCENT AUTO 9 % (4-13); Mean Corpuscular HGB 33.6 pg (26.0-34.0); Mean Corpuscular HGB Conc 34.3 g/dL (31.5-36.5); Mean Corpuscular Volume 98 fL (80-100); Mean Platelet Volume 9.9 fL (9.1-12.4); NEUTROPHILS ABSOLUTE AUTO 5.91 K/mm3 (1.96-9.15); NEUTROPHILS PERCENT AUTO 65 % (41-73); Platelet Count 140 K/mm3 (150-400); RDW Coefficient Variation 12.4 % (11.7-14.2); RDW Standard Deviation 45.2 fL (35.1-46.3); Red Blood Cell Count 3.33 M/mm3 (4.30-5.90); White Blood Cell Count 9.14 K/mm3 (4.00-11.30)
[2022-08-03 03:46] LABS: Albumin, Blood 2.6 g/dL (3.4-5.0); Anion Gap 6 mmol/L (6-16); Blood Urea Nitrogen 14 mg/dL (8-24); Bun/Creatinine Ratio 13.9 (12.0-20.0); CO2, Blood 23 mmol/L (21-32); Calcium, Blood 8.6 mg/dL (8.5-10.1); Chloride, Blood 111 mmol/L (98-108); Creatinine, Blood 1.01 mg/dL (0.60-1.20); Glomerular Filtration Rate 87 (60-); Glucose, Blood 90 mg/dL (70-99); Phosphorus, Blood 3.9 mg/dL (2.5-4.9); Potassium, Blood 3.3 mmol/L (3.5-5.5); Sodium, Blood 140 mmol/L (136-145)
--- NOTE | 2022-08-03 06:26 | NUR ---
SHIFT SUMMARY: Pt alert, oriented, minimal anxiety. Tremors in arms noted, but CIWA score was not high enough to merit PRNS. Pain adequately controlled with 10mg of oxycodone with 50mcg of fentanyl for breakthrough pain. Pt sat at the edge of the bed, non-weight bearing on right. Able to void adequate amount. Tolerating PO. BP was low at beginning of shift, resolved spontaneously.
--- NOTE | 2022-08-03 07:23 | NUR ---
ASSUMED CARE OF PATIENT AND REPORT RECEIVED FROM PREPARATION DEPARTMENT SUPERVISOR NURSE. PATIENT SLEEPING COMFORTABLY. HR IS SR IN THE 80'S. BP IS STABLE AT 103/63. NASAL CANNULA IS PLACED AND RUNNING AT 2LPM. SP02 @ 94. NS IS RUNNING AT 100mL/HR TO RIGHT HAND. URINAL IS PRESENT AT BEDSIDE WITHIN PT'S REACH.
--- NOTE | 2022-08-03 13:50 | NUR ---
REPORT CALLED TO JAYMIE, RIM FIRE CHARGER OPERATOR, AND PRECEPTOR FOR TRANSFER TO RM 216. PATIENT TRANSFERRED VIA WHEELCHAIR BY CLINICAL ABSTRACTOR WITH ALL BELONGINGS TO ROOM 216, TOLERATED WELL.
--- NOTE | 2022-08-03 14:20 | NUR ---
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
--- NOTE | 2022-08-03 18:32 | NUR ---
1400 TO ROOM VIA WHEELCHAIR, STOOD AND PIVOTED TO BED. RLE ELEVATED ON 3 PILLOWS, PT DECLINES ICE TO LEG AT THIS TIME. PT REPORTS PAIN IS AT ACCEPTABLE LEVEL AT THIS TIME
--- NOTE | 2022-08-03 18:35 | NUR ---
PT SITTING UP IN CHAIR EATING DINNER. SPLINT IN PLACE TO RLE, DENIES NUMBNESS OR TINGLING. PT ABLE TO MOVE TOES SPONTANEOUSLY. PT MEDICATED ANKLE PAIN
[2022-08-04] VITALS (7 sets, daily range): BP systolic 122–155; BP diastolic 74–85
--- NOTE | 2022-08-04 05:17 | NUR ---
SHIFT SUMMARY NO ACUTE CHANGES TO REPORT OVERNIGHT, PT HAS RESTED MOST OF THE SHIFT. PT MEDICATED FOR PAIN PER EMAR WITH EFFECT. RIGHT ANKLE REMAINS IN SPLINT, DRESSING C/D/I. NO S/S OF ETOH WITHDRAWAL, BEHAVIOUR HAS BEEN APPROPRIATE. A/OX4. VITALS STABLE. BED IN LOWEST POSITION, CALL LIGHT WITHIN REACH.
[2022-08-04 05:44] LABS: Bun/Creatinine Ratio 12.5 (12.0-20.0); Creatinine, Blood 0.88 mg/dL (0.60-1.20); Potassium, Blood 3.4 mmol/L (3.5-5.5)
--- NOTE | 2022-08-04 17:01 | NUR ---
SHIFT SUMMARY PT A&OX4, VSS/RA, RAYMON PO, VOIDING/URINAL AND BSC, STAND PIVOT W/FWW & GB NEEDS REMINDERS AND ENCOURAGEMENT TO USE ARMS AND NWB RLE, PAIN MANAGED WITH OXY AND TYLENOL. POD3 ORIF ANKLE, DRESSING CDI, ELEVATED, NWB. WILL REPORT TO ONCOMING NOC RN.
[2022-08-05 02:32] VITALS: BP 160/88
--- NOTE | 2022-08-05 04:23 | NUR ---
SHIFT SUMMARY NO ACUTE CHANGES TO REPORT OVERNIGHT, PT HAS RESTED T/O SHIFT. MEDICATED FOR PAIN X1, PAIN SEEMS BETTER CONTROLLED THIS SHIFT. PT STAND PIVOTS TO THE BSC WITH ASSISTANCE. DRESSING C/D/I TO RIGHT ANKLE. AFFECTED LEG ELEVATED ON PILLOW WHILE RESTING. VITALS STABLE. PT A/OX4 AND HAS BEEN PLESANT WITH CARE. BED IN LOWEST POSITION, CALL LIGHT WITHIN REACH.
--- NOTE | 2022-08-05 07:26 | NUR ---
recvd report from previous MICHAEL Erickson. pt a/o x 4, pleasant/cooperative, bed in lowest position, bed rails up x 2, call light within reach
[2022-08-05 07:28] VITALS: BP 140/81
[2022-08-05 07:36] LABS: Magnesium, Blood 1.4 mg/dL (1.6-2.4)
[2022-08-05 07:37] LABS: Bun/Creatinine Ratio 8.6 (12.0-20.0); Calcium, Blood 9.2 mg/dL (8.5-10.1); Creatinine, Blood 0.81 mg/dL (0.60-1.20); Phosphorus, Blood 3.5 mg/dL (2.5-4.9); Potassium, Blood 3.4 mmol/L (3.5-5.5)
[2022-08-05 14:49] VITALS: BP 113/75
--- NOTE | 2022-08-05 16:11 | NUR ---
SHIFT SUMMARY: PT REMAINED A/O X 4, VS STABLE, NO ACUTE CHANGES. PT WORKED WITH PHYSICAL THERAPY X 1 THIS SHIFT, HAS REMAINED PLEASANT/COOPERATIVE. SURGICAL SITE REMAINED C/D/I. PT VOIDED >350 ML THIS SHIFT VIA URINAL. PT HAS REMAINED UP IN RECLINER THIS SHIFT, TOLERATED PO INTAKE, REPORTS PAIN MANAGED TO A TOLERABLE LEVEL FOLLOWING ANALGESIA VIA MAR.
[2022-08-05 18:20] VITALS: BP 128/77
[2022-08-05 21:57] VITALS: BP 151/82
[2022-08-06 02:55] VITALS: BP 114/70
--- NOTE | 2022-08-06 06:43 | NUR ---
SHIFT SUMMARY PT A&OX4, AND COOPERATIVE WITH CARE. NO ACUTE CHANGES. VSS. MEDICATED TWICE FOR PAIN. NWB ON RLE, ELEVATED ON PILLOWS. STAND PIVOT TO BSC/URINAL TO VOID. TOLERATING PO INTAKE. DRESSING TO RIGHT ANKLE C/D/I. CALLS APPROPRIATELY, CALL LIGHT WITHIN REACH.
[2022-08-06 07:27] VITALS: BP 126/77
[2022-08-06] MEDS ORDERED: TRAZ150T57 PO (12:37)
[2022-08-06] MEDS ORDERED: MIRALAX17 GM PO (12:40)
[2022-08-06] MEDS ORDERED: MULVITA PO (12:41)
[2022-08-06] MEDS ORDERED: TIOT18 INH (12:43)
[2022-08-06] MEDS ORDERED: Percocet 5-3251 EACH PO (12:45)
[2022-08-06 14:39] VITALS: BP 116/81
--- NOTE | 2022-08-06 16:00 | NUR ---
DISCHARGE PATIENT CLEARED TO DC TO SNF. PATIENT TRANSFERING W/. 1-2 P ASSIST, STAND/PIVOT TO BSC & CHAIR. EATING, DRINKING, & VOIDING WELL. PAIN MANAGED WELL PER EMAR. PATIENT COOPERATIVE AND PLEASANT AT THIS TIME. REPORT CALLED TO MARY LOU RODRIGUEZ AT [facility].
== END 2022-08-06 16:00 | DRG 493 ==
LOC: ER 19:26 → SURS 19:27 → ICUW 08-01 17:40 → SURS 08-03 14:10
PROVIDERS: Emergency Medicine; Internal Medicine; Nurse Practitioner Acute Care; Orthopaedic Surgery; ADMIT Student in an Organized Health Care Education/Training Program
PROC: 2W3QX1Z Immobilization of Right Lower Leg using Splint (ICD-10-PCS; 2022-07-30)
PROC: HZ2ZZZZ Detoxification Services for Substance Abuse Treatment (ICD-10-PCS; 2022-07-30)
PROC: 0QSG04Z Reposition Right Tibia with Internal Fixation Device, Open Approach (ICD-10-PCS; principal; 2022-08-01 14:30)
PROC: 0QSJ04Z Reposition Right Fibula with Internal Fixation Device, Open Approach (ICD-10-PCS; principal; 2022-08-01 14:30)
DX: S82.851A Displaced trimalleolar fracture of right lower leg, initial encounter for closed fracture (principal); F10.231 Alcohol dependence with withdrawal delirium; F10.229 Alcohol dependence with intoxication, unspecified; I35.0 Nonrheumatic aortic (valve) stenosis; E87.6 Hypokalemia; E83.42 Hypomagnesemia; N40.0 Benign prostatic hyperplasia without lower urinary tract symptoms; F32.A Depression, unspecified; E66.01 Morbid (severe) obesity due to excess calories; F41.9 Anxiety disorder, unspecified; I10 Essential (primary) hypertension; E03.9 Hypothyroidism, unspecified; R01.1 Cardiac murmur, unspecified; B19.20 Unspecified viral hepatitis C without hepatic coma; F17.210 Nicotine dependence, cigarettes, uncomplicated; I05.0 Rheumatic mitral stenosis; K29.70 Gastritis, unspecified, without bleeding; K72.90 Hepatic failure, unspecified without coma; J44.9 Chronic obstructive pulmonary disease, unspecified; E78.5 Hyperlipidemia, unspecified; Y90.8 Blood alcohol level of 240 mg/100 ml or more; W18.30XA Fall on same level, unspecified, initial encounter; Z79.51 Long term (current) use of inhaled steroids; Z88.8 Allergy status to other drugs, medicaments and biological substances; Z98.890 Other specified postprocedural states; Z79.899 Other long term (current) drug therapy; Z87.19 Personal history of other diseases of the digestive system; Z91.048 Other nonmedicinal substance allergy status; Z79.52 Long term (current) use of systemic steroids; Z79.811 Long term (current) use of aromatase inhibitors; Z79.02 Long term (current) use of antithrombotics/antiplatelets; Z68.39 Body mass index [BMI] 39.0-39.9, adult
CPT/HCPCS: 29515; 36415; 36416; 51700; 51702; 73600; 76000; 80048; 80053; 80069; 81003; 83735; 84100; 85025; 85610; 93005; 93010; 93306; 94640; 94664; 94760; 94762; 96365; 96375; 96376; 97110; 97110-CQ; 97116; 97162; 97530; 99152; 99285-25; A9270; C1713; C1769; G0378; G0480; J0360; J0690; J1100; J1650; J1885; J2060; J2250; J2405; J2704; J3010; J3411; J3475; J7030; J7050; J7120

== ENCOUNTER 2022-08-30 21:57 | Observation (INO) | payer OTHER ==
[~2022-08-30] VITALS: Ht 167.6 cm; Wt 110.2 kg
[~2022-08-30 21:57] MED LIST changes: +ATROVENT HFA12.9 GM INH; +B-1100 M1 PO; +LIDOCAINE1 EACH TOP; +MIRALAX17 GM PO; +MONT10T PO; +MULVITA PO; +PREG50 PO; +Percocet 5-3251 EACH PO; +TIOT18 INH; +TRAZ150T57 PO; +Trazodone HCl300 MG PO
[2022-08-30 22:50] LABS: BASOPHILS ABSOLUTE AUTO 0.04 K/mm3 (0.00-0.23); BASOPHILS PERCENT AUTO 1 % (0-2); EOSINOPHILS ABSOLUTE AUTO 0.11 K/mm3 (0.00-0.68); EOSINOPHILS PERCENT AUTO 2 % (0-6); Hematocrit 34.3 % (37.0-53.0); Hemoglobin 12.2 g/dL (13.5-17.5); IMMATURE GRAN ABSOLUTE AUTO 0.03 K/mm3 (0.00-0.10); IMMATURE GRAN PERCENT AUTO 0 % (0-1); LYMPHOCYTES ABSOLUTE AUTO 3.47 K/mm3 (0.84-5.20); LYMPHOCYTES PERCENT AUTO 49 % (21-46); MONOCYTES ABSOLUTE AUTO 0.58 K/mm3 (0.16-1.47); MONOCYTES PERCENT AUTO 8 % (4-13); Mean Corpuscular HGB 33.9 pg (26.0-34.0); Mean Corpuscular HGB Conc 35.6 g/dL (31.5-36.5); Mean Corpuscular Volume 95 fL (80-100); Mean Platelet Volume 10.3 fL (9.1-12.4); NEUTROPHILS ABSOLUTE AUTO 2.81 K/mm3 (1.96-9.15); NEUTROPHILS PERCENT AUTO 40 % (41-73); Platelet Count 158 K/mm3 (150-400); RDW Coefficient Variation 12.2 % (11.7-14.2); RDW Standard Deviation 42.4 fL (35.1-46.3); White Blood Cell Count 7.04 K/mm3 (4.00-11.30)
[2022-08-30 23:12] LABS: Albumin, Blood 3.4 g/dL (3.4-5.0); Albumin/Globulin Ratio 0.8 (0.8-1.8); Bilirubin, Total 0.4 mg/dL (0.1-1.0); Bun/Creatinine Ratio 8.5 (12.0-20.0); Calcium, Blood 8.3 mg/dL (8.5-10.1); Creatinine, Blood 0.83 mg/dL (0.60-1.20); Globulin, Blood 4.3 g/dL (2.2-4.0); Potassium, Blood 3.6 mmol/L (3.5-5.5); Total Protein, Blood 7.7 g/dL (6.4-8.2)
[2022-08-30 23:35] LABS: Influenza A, PCR NEGATIVE (NEGATIVE); Influenza B, PCR NEGATIVE (NEGATIVE); Resp Syncytial Virus, PCR NEGATIVE (NEGATIVE); SARS-Cov-2 (COVID-19) PCR, MMC NEGATIVE (NEGATIVE)
[2022-08-31 01:32] LABS: U Cannabinoids Screen DETECTED
[2022-08-31 01:33] LABS: U Amphetamine Screen Not Detected; U Barbituate Screen Not Detected; U Benzodiazapine Screen DETECTED; U Buprenorphine Screen Not Detected; U Cocaine Screen Not Detected; U Methadone Screen Not Detected; U Methamphetamine Screen Not Detected; U Opiates Screen Not Detected; U Oxycodone Screen DETECTED; U Phencyclidine Screen Not Detected; U Propoxyphene Screen Not Detected
[2022-08-31 12:00] VITALS: BP 127/81
== END 2022-08-31 14:17 | disposition home or self-care (01) ==
LOC: ER 21:57 → EOR 21:58
PROVIDERS: ADMIT Emergency Medicine
DX: F33.9 Major depressive disorder, recurrent, unspecified (principal); F10.129 Alcohol abuse with intoxication, unspecified; F12.10 Cannabis abuse, uncomplicated; I10 Essential (primary) hypertension; F17.210 Nicotine dependence, cigarettes, uncomplicated; B19.20 Unspecified viral hepatitis C without hepatic coma; Z79.899 Other long term (current) drug therapy
CPT/HCPCS: 0241U; 80053; 85025; 99285; G0378; G0480

== ENCOUNTER 2022-10-06 20:06 | Emergency (ER) | payer OTHER ==
[~2022-10-06] VITALS: Ht 167.6 cm; Wt 107.5 kg
[2022-10-06] MEDS ORDERED: CEPH500 PO (21:56)
[2022-10-06 22:18] VITALS: BP 92/58
== END 2022-10-06 22:28 | disposition home or self-care (01) ==
LOC: ER 20:06
DX: L55.9 Sunburn, unspecified (principal); I10 Essential (primary) hypertension; F17.210 Nicotine dependence, cigarettes, uncomplicated; Z88.8 Allergy status to other drugs, medicaments and biological substances; Z79.899 Other long term (current) drug therapy; Z79.890 Hormone replacement therapy
CPT/HCPCS: 99283

== ENCOUNTER → 2022-10-17 | Outpatient (CLI) | payer OTHER | LOC: LAB SHORT 15:11 → LAB 15:11 | DX: L03.031 Cellulitis of right toe (principal) | CPT/HCPCS: 87070; 87075; 87077; 87147; 87186; 87205 ==

== ENCOUNTER 2022-10-20 19:19 | Inpatient (IN) | payer OTHER ==
[2022-10-20] VITALS (8 sets, daily range): BP systolic 94–107; BP diastolic 60–67
[~2022-10-20] VITALS: Ht 167.6 cm; Wt 103.4 kg
[2022-10-20 19:51] LABS: BASOPHILS ABSOLUTE AUTO 0.02 K/mm3 (0.00-0.23); BASOPHILS PERCENT AUTO 0 % (0-2); EOSINOPHILS PERCENT AUTO 0 % (0-6); Hemoglobin 11.2 g/dL (13.5-17.5); IMMATURE GRAN ABSOLUTE AUTO 0.09 K/mm3 (0.00-0.10); IMMATURE GRAN PERCENT AUTO 1 % (0-1); LYMPHOCYTES ABSOLUTE AUTO 1.46 K/mm3 (0.84-5.20); LYMPHOCYTES PERCENT AUTO 23 % (21-46); MONOCYTES ABSOLUTE AUTO 0.77 K/mm3 (0.16-1.47); MONOCYTES PERCENT AUTO 12 % (4-13); Mean Corpuscular HGB 32.5 pg (26.0-34.0); Mean Corpuscular HGB Conc 33.9 g/dL (31.5-36.5); Mean Corpuscular Volume 96 fL (80-100); Mean Platelet Volume 10.4 fL (9.1-12.4); NEUTROPHILS ABSOLUTE AUTO 4.03 K/mm3 (1.96-9.15); NEUTROPHILS PERCENT AUTO 63 % (41-73); Platelet Count 156 K/mm3 (150-400); RDW Coefficient Variation 13.7 % (11.7-14.2); RDW Standard Deviation 48.6 fL (35.1-46.3); Red Blood Cell Count 3.45 M/mm3 (4.30-5.90); White Blood Cell Count 6.37 K/mm3 (4.00-11.30)
[2022-10-20 20:06] LABS: Albumin, Blood 2.5 g/dL (3.4-5.0); Albumin/Globulin Ratio 0.7 (0.8-1.8); Bilirubin, Total 0.3 mg/dL (0.1-1.0); Bun/Creatinine Ratio 8.9 (12.0-20.0); Calcium, Blood 8.6 mg/dL (8.5-10.1); Creatinine, Blood 1.79 mg/dL (0.60-1.20); Globulin, Blood 3.5 g/dL (2.2-4.0); Potassium, Blood 3.4 mmol/L (3.5-5.5)
[2022-10-20 21:20] LABS: Source, Urine Clean Catch
[2022-10-20 21:22] LABS: Appearance, Urine Clear (Clear); Bilirubin, Urine Neg (Neg); Blood, Urine 1+ (Neg); Color, Urine Amber (P-Yellow); Glucose Qualitative, Urine Neg (Neg); Ketones, Urine Neg (Neg); Leukocyte Esterase, Urine 1+ (Neg); Nitrite, Urine Neg (Neg); Protein, Urine 2+ (Neg); Specific Gravity, Urine 1.015 (1.003-1.022); Urobilinogen, Urine 1+ (Normal)
[2022-10-20 21:29] LABS: Bacteria Many /hpf; Renal Epithelial Rare /hpf (0-Rare); Squamous Epithelial Cells Few /hpf (Few); White Blood Cells, Urine 25-50 /hpf (0-5)
[2022-10-20 21:33] LABS: U Amphetamine Screen Not Detected; U Barbituate Screen Not Detected; U Benzodiazapine Screen DETECTED; U Cocaine Screen Not Detected; U Methadone Screen Not Detected; U Methamphetamine Screen Not Detected; U Opiates Screen Not Detected; U Phencyclidine Screen Not Detected
[2022-10-20 21:34] LABS: U Buprenorphine Screen Not Detected; U Cannabinoids Screen Not Detected; U Oxycodone Screen Not Detected; U Propoxyphene Screen Not Detected
[2022-10-20 23:46] LABS: Source, Urine Foley catheter
[2022-10-20 23:53] LABS: Bilirubin, Urine Neg (Neg); Blood, Urine Neg (Neg); Glucose Qualitative, Urine Neg (Neg); Ketones, Urine Neg (Neg); Leukocyte Esterase, Urine Neg (Neg); Nitrite, Urine Neg (Neg); Protein, Urine Neg (Neg); Urobilinogen, Urine NORM (Normal)
[2022-10-21] VITALS (27 sets, daily range): BP systolic 71–145; BP diastolic 46–92
[2022-10-21] LABS: Appearance, Urine Clear (Clear); Color, Urine Yellow (P-Yellow)
[2022-10-21 03:56] LABS: BASOPHILS ABSOLUTE AUTO 0.03 K/mm3 (0.00-0.23); BASOPHILS PERCENT AUTO 0 % (0-2); EOSINOPHILS ABSOLUTE AUTO 0.31 K/mm3 (0.00-0.68); EOSINOPHILS PERCENT AUTO 4 % (0-6); Hematocrit 32.9 % (37.0-53.0); Hemoglobin 11.2 g/dL (13.5-17.5); IMMATURE GRAN ABSOLUTE AUTO 0.06 K/mm3 (0.00-0.10); IMMATURE GRAN PERCENT AUTO 1 % (0-1); LYMPHOCYTES ABSOLUTE AUTO 1.55 K/mm3 (0.84-5.20); LYMPHOCYTES PERCENT AUTO 22 % (21-46); MONOCYTES ABSOLUTE AUTO 0.85 K/mm3 (0.16-1.47); MONOCYTES PERCENT AUTO 12 % (4-13); Mean Corpuscular HGB 32.2 pg (26.0-34.0); Mean Corpuscular Volume 95 fL (80-100); Mean Platelet Volume 10.1 fL (9.1-12.4); NEUTROPHILS ABSOLUTE AUTO 4.29 K/mm3 (1.96-9.15); NEUTROPHILS PERCENT AUTO 61 % (41-73); Platelet Count 136 K/mm3 (150-400); RDW Standard Deviation 48.1 fL (35.1-46.3); Red Blood Cell Count 3.48 M/mm3 (4.30-5.90); White Blood Cell Count 7.09 K/mm3 (4.00-11.30)
[2022-10-21 04:04] LABS: Albumin, Blood 2.3 g/dL (3.4-5.0); Albumin/Globulin Ratio 0.7 (0.8-1.8); Bilirubin, Total 0.2 mg/dL (0.1-1.0); Bun/Creatinine Ratio 9.6 (12.0-20.0); Calcium, Blood 7.6 mg/dL (8.5-10.1); Creatinine, Blood 1.35 mg/dL (0.60-1.20); Globulin, Blood 3.2 g/dL (2.2-4.0); Potassium, Blood 3.5 mmol/L (3.5-5.5); Total Protein, Blood 5.5 g/dL (6.4-8.2)
--- NOTE | 2022-10-21 05:43 | NUR ---
SHIFT SUMMARY PATIENT IS ALERT AND ORIENTED X4. 02 SATS 94% ON 2L VIA NC, LS DIMINISHED. HR SB-SR 50s-60s. BP HYPOTENSIVE AT TIMES WITH SYSTOLIC IN THE 80s, MAP REMAINS >65. DENIES CP/PRESSURE. FLUIDS INFUSING. GUAMAN PATENT AND DRAINING YELLOW URINE TO GRAVITY. PATIENT UP TO TOILET WITH WALKER AND HAD A BM. CALL LIGHT IN REACH. IGNITION RISK ASSESSED ON ADMIT AND HOURLY, PATIENT ADMITS TO BEING A DAILY SMOKER, DENIES HAVING AN IGNITION SOURCE. PATIENT HAS NICOTINE PATCH IN PLACE. PATIENT STATES UNDERSTANDING AND NO RISK AT THIS TIME.
--- NOTE | 2022-10-21 15:23 | NUR ---
SHORT OF BREATH PATIENT C/O SHORTNESS OF BREATH AND REQUESTED AN INHALER. NO ORDERS FOR PRN INHALER. CALL MADE TO DR. PERRY AND VERBAL ORDER FOR ALBUTERAL NEB TREATMENTS PRN SHORTNESS OF BREATH. RESPIRATORY ORDERS PLACED AND RESPIRATORY CARE UPDATED.
--- NOTE | 2022-10-21 16:40 | NUR ---
SHIFT SUMMARY/TRANSFER TO MEDICAL PATIENT WAS UP TO TOILET ONCE DURING SHIFT FOR BM. GOOD URINE OUTPUT AND PO FLUID INTAKE. MEDICATED FOR ANKLE/BACK PAIN PER EMAR. ALBUTEROL PRN INHALER STARTED-SEE NURSE NOTE "SHORTNESS OF BREATH". GUAMAN CATHETER REMOVED THIS SHIFT. NO OTHER CHANGES. REPORT GIVEN TO MICHAEL MORA ON MEDICAL FLOOR AND PATIENT TRANSFERRED VIA WHEELCHAIR WITH TELE.
--- NOTE | 2022-10-21 18:49 | NUR ---
SHIFT SUMMARY: MARTINEZ IS A&OX4. VSS, NO ACUTE EVENTS THIS SHIFT. PT TRANSFERED FROM ICU. HE IS TOLERATING PO INTAKE WELL, MAINTAINING SATS ORA, DOES HAVE MILD OCCASIONAL TACHYPNEA. TELE IN PLACE, NSR @ 89. HE IS ABLE TO MAKE HIS NEEDS KNOWN, USING THE URINAL WITHOUT DIFFICULTY, AND IS A ONE-PERSON STANDBY ASSIST WITH THE FWW. HE IS LYING IN BED WITH THE CALL LIGHT IN REACH. WCTM UNTIL REPORT IS GIVEN TO CAT DRIVER RN.
--- NOTE | 2022-10-22 04:52 | NUR ---
SHIFT SUMMERY. PT RESTING IN BED, PT APPEARS TO HAVE BEEN SLEEPING WELL. RESPERTIONS EVEN AND UNLABORED. CALL LIGHT IN REACH FIRE SAFETY REVIEWED.
[2022-10-22 05:38] VITALS: BP 157/95
[2022-10-22 06:02] LABS: Bun/Creatinine Ratio 7.9 (12.0-20.0); Calcium, Blood 8.2 mg/dL (8.5-10.1); Creatinine, Blood 0.88 mg/dL (0.60-1.20); Potassium, Blood 3.7 mmol/L (3.5-5.5)
[2022-10-22 07:27] VITALS: BP 130/84
--- NOTE | 2022-10-22 08:00 | NUR ---
pt laying in bed awake a/ox4, pleasant and cooperative with care, follows commands well, reports pain to left leg joints, was medicated earlier, lungs are clear t/o, resp even and unlabored, no cough noted, hrr, tele in place running sr per monitor, see strip, no edema noted, ppp+2, cap refill <3sec, vs stable, afebrile, piv site to rac is clear and patent, btx4, abd round soft nontender, voids without diff, skin c/w/d, maew, jonh, call light in reach.
[2022-10-22] MEDS ORDERED: MIRALAX17 GM PO (12:23)
[2022-10-22 13:08] VITALS: BP 140/87
--- NOTE | 2022-10-22 14:35 | NUR ---
Pt left via wheelchair with retail service technician in attendence with all his belongings.
== END 2022-10-22 14:31 | disposition home or self-care (01) | DRG 683 ==
LOC: ER 19:19 → ICUE 19:20 → MEDS 22:50 → ICUE 10-21 12:33 → MEDS 10-21 16:47
PROVIDERS: Internal Medicine; Student in an Organized Health Care Education/Training Program; ADMIT Internal Medicine
PROC: 0T9B70Z Drainage of Bladder with Drainage Device, Via Natural or Artificial Opening (ICD-10-PCS; principal; 2022-10-20)
PROC: 3E033XZ Introduction of Vasopressor into Peripheral Vein, Percutaneous Approach (ICD-10-PCS; 2022-10-20)
DX: N17.9 Acute kidney failure, unspecified (principal); E87.21 Acute metabolic acidosis; I95.9 Hypotension, unspecified; F17.210 Nicotine dependence, cigarettes, uncomplicated; J44.9 Chronic obstructive pulmonary disease, unspecified; I10 Essential (primary) hypertension; Z87.81 Personal history of (healed) traumatic fracture; F32.A Depression, unspecified; E03.9 Hypothyroidism, unspecified; Z59.00 Homelessness unspecified; R00.1 Bradycardia, unspecified; E86.0 Dehydration; D69.6 Thrombocytopenia, unspecified; Z87.19 Personal history of other diseases of the digestive system; F41.9 Anxiety disorder, unspecified; Z86.19 Personal history of other infectious and parasitic diseases; K21.9 Gastro-esophageal reflux disease without esophagitis; M79.671 Pain in right foot; G89.29 Other chronic pain; E86.1 Hypovolemia; K70.9 Alcoholic liver disease, unspecified; K27.9 Peptic ulcer, site unspecified, unspecified as acute or chronic, without hemorrhage or perforation; K29.70 Gastritis, unspecified, without bleeding; Z88.8 Allergy status to other drugs, medicaments and biological substances; Z91.048 Other nonmedicinal substance allergy status; Z79.890 Hormone replacement therapy; Z79.899 Other long term (current) drug therapy; Z79.891 Long term (current) use of opiate analgesic; Z98.890 Other specified postprocedural states
CPT/HCPCS: 36415; 51702; 71045; 80048; 80053; 81001; 81003; 83605; 83690; 83880; 84484; 85025; 87086; 93005; 93010; 94640; 94664; 94760; 96361-59; 96365-59; 96366-59; 96367-59; 99285-25; A9270; J1650; J2543; J3370; J7030; J7050; J7060

== ENCOUNTER 2023-01-30 09:38 | Day surgery (SDC) | payer OTHER ==
[~2023-01-30] VITALS: Ht 165.1 cm; Wt 112.1 kg
--- NOTE | 2023-01-30 11:25 | NUR ---
01/30/23 Kelvin5 Almaz Medina PT UPDATED ON DELAY IN START TIME DUE TO PREVIOUS CASE RUNNING LONGER THAN EXPECTED. BED IN LOW, LOCKED POSITION, CALL LIGHT IN REACH. WARM BLANKET APPLIED TO PT.
[2023-01-30 12:16] VITALS: BP 121/71
== END 2023-01-30 12:28 | disposition home or self-care (01) ==
LOC: ORSCSDS 09:38
PROVIDERS: Internal Medicine Gastroenterology
PROC: 0DJ08ZZ Inspection of Upper Intestinal Tract, Via Natural or Artificial Opening Endoscopic (ICD-10-PCS; principal; 2023-01-30 11:15)
PROC: 0D758ZZ Dilation of Esophagus, Via Natural or Artificial Opening Endoscopic (ICD-10-PCS; principal; 2023-01-30 11:15)
DX: R13.10 Dysphagia, unspecified (principal); K74.69 Other cirrhosis of liver; Z86.19 Personal history of other infectious and parasitic diseases; I10 Essential (primary) hypertension; J44.9 Chronic obstructive pulmonary disease, unspecified; G47.33 Obstructive sleep apnea (adult) (pediatric); E66.9 Obesity, unspecified; Z68.39 Body mass index [BMI] 39.0-39.9, adult; Z79.899 Other long term (current) drug therapy; F17.210 Nicotine dependence, cigarettes, uncomplicated
CPT/HCPCS: J2001; J2704; J7120

== ENCOUNTER 2023-03-06 11:28 | Emergency (ER) | payer OTHER ==
[~2023-03-06] VITALS: Ht 165.1 cm; Wt 111.1 kg
[2023-03-06] MEDS ORDERED: CARVEDILOL3.125 MG PO (11:42)
[2023-03-06] MEDS ORDERED: VARENICLINE TA1 EACH PO (11:42)
[2023-03-06 11:52] LABS: Hematocrit 34.4 % (37.0-53.0); Hemoglobin 11.5 g/dL (13.5-17.5); Mean Corpuscular HGB 31.6 pg (26.0-34.0); Mean Corpuscular HGB Conc 33.4 g/dL (31.5-36.5); Mean Corpuscular Volume 95 fL (80-100); Mean Platelet Volume 10.5 fL (9.1-12.4); Platelet Count 155 K/mm3 (150-400); RDW Coefficient Variation 13.2 % (11.7-14.2); RDW Standard Deviation 45.9 fL (35.1-46.3); Red Blood Cell Count 3.64 M/mm3 (4.30-5.90); White Blood Cell Count 6.44 K/mm3 (4.00-11.30)
[2023-03-06 12:14] LABS: Albumin, Blood 3.3 g/dL (3.4-5.0); Albumin/Globulin Ratio 0.8 (0.8-1.8); Bilirubin, Total 0.2 mg/dL (0.1-1.0); Bun/Creatinine Ratio 13.9 (12.0-20.0); Calcium, Blood 8.8 mg/dL (8.5-10.1); Creatinine, Blood 1.15 mg/dL (0.60-1.20); Globulin, Blood 4.1 g/dL (2.2-4.0); Potassium, Blood 4.2 mmol/L (3.5-5.5); Total Protein, Blood 7.4 g/dL (6.4-8.2)
[2023-03-06 12:33] LABS: BASOPHILS ABSOLUTE MAN 0.12 K/mm3 (0.00-0.23); BASOPHILS PERCENT MAN 2 % (0-2); EOSINOPHILS ABSOLUTE MAN 0.06 K/mm3 (0.00-0.68); EOSINOPHILS PERCENT MAN 1 % (0-6); LYMPHOCYTES ABSOLUTE MAN 1.28 K/mm3 (0.84-5.20); LYMPHOCYTES PERCENT MAN 20 % (21-46); MONOCYTES ABSOLUTE MAN 0.32 K/mm3 (0.16-1.47); MONOCYTES PERCENT MAN 5 % (4-13); NEUTROPHILS ABSOLUTE MAN 4.63 K/mm3 (1.96-9.15); SEG NEUTROPHILS PERCENT MAN 72 % (41-73); TOTAL CELLS COUNTED 100
[2023-03-06] MEDS ORDERED: BENZ100A PO (13:09)
[2023-03-06] MEDS ORDERED: PRED20 PO (13:09)
[2023-03-06 14:05] VITALS: BP 140/88
== END 2023-03-06 14:10 | disposition home or self-care (01) ==
LOC: ER 11:28
PROVIDERS: Emergency Medicine
DX: J44.1 Chronic obstructive pulmonary disease with (acute) exacerbation (principal); I10 Essential (primary) hypertension; B19.20 Unspecified viral hepatitis C without hepatic coma; Z11.52 Encounter for screening for COVID-19; Z88.8 Allergy status to other drugs, medicaments and biological substances; Z91.048 Other nonmedicinal substance allergy status; Z91.09 Other allergy status, other than to drugs and biological substances; Z79.899 Other long term (current) drug therapy; Z79.51 Long term (current) use of inhaled steroids
CPT/HCPCS: 71045; 80053; 84484; 85025; 93005; 93010; 94644; 94664; 96374; 99285-25; J2930

== ENCOUNTER 2023-04-05 17:32 | Emergency (ER) | payer OTHER ==
[~2023-04-05] VITALS: Ht 165.1 cm; Wt 116.1 kg
[~2023-04-05 17:32] MED LIST changes: +CARVEDILOL3.125 MG PO; +PRED20 PO; +VARENICLINE TA1 EACH PO
[2023-04-05 17:57] LABS: BASOPHILS ABSOLUTE AUTO 0.04 K/mm3 (0.00-0.23); BASOPHILS PERCENT AUTO 1 % (0-2); EOSINOPHILS ABSOLUTE AUTO 0.19 K/mm3 (0.00-0.68); EOSINOPHILS PERCENT AUTO 3 % (0-6); Hematocrit 36.9 % (37.0-53.0); Hemoglobin 12.3 g/dL (13.5-17.5); IMMATURE GRAN ABSOLUTE AUTO 0.04 K/mm3 (0.00-0.10); IMMATURE GRAN PERCENT AUTO 1 % (0-1); LYMPHOCYTES ABSOLUTE AUTO 2.38 K/mm3 (0.84-5.20); LYMPHOCYTES PERCENT AUTO 31 % (21-46); MONOCYTES ABSOLUTE AUTO 0.61 K/mm3 (0.16-1.47); MONOCYTES PERCENT AUTO 8 % (4-13); Mean Corpuscular HGB 30.8 pg (26.0-34.0); Mean Corpuscular HGB Conc 33.3 g/dL (31.5-36.5); Mean Corpuscular Volume 92 fL (80-100); Mean Platelet Volume 10.4 fL (9.1-12.4); NEUTROPHILS ABSOLUTE AUTO 4.45 K/mm3 (1.96-9.15); NEUTROPHILS PERCENT AUTO 58 % (41-73); Platelet Count 176 K/mm3 (150-400); RDW Coefficient Variation 13.2 % (11.7-14.2); RDW Standard Deviation 45.1 fL (35.1-46.3); White Blood Cell Count 7.71 K/mm3 (4.00-11.30)
[2023-04-05 18:17] LABS: Albumin, Blood 3.3 g/dL (3.4-5.0); Albumin/Globulin Ratio 0.8 (0.8-1.8); Bilirubin, Total 0.2 mg/dL (0.1-1.0); Bun/Creatinine Ratio 11.4 (12.0-20.0); Calcium, Blood 9.2 mg/dL (8.5-10.1); Creatinine, Blood 1.05 mg/dL (0.60-1.20); Globulin, Blood 3.9 g/dL (2.2-4.0); Potassium, Blood 3.9 mmol/L (3.5-5.5); Total Protein, Blood 7.2 g/dL (6.4-8.2)
[2023-04-05 23:15] VITALS: BP 147/84
== END 2023-04-05 23:20 | disposition home or self-care (01) ==
LOC: ER 17:32
PROVIDERS: Student in an Organized Health Care Education/Training Program
DX: R60.0 Localized edema (principal); F17.210 Nicotine dependence, cigarettes, uncomplicated; F10.10 Alcohol abuse, uncomplicated; Z87.19 Personal history of other diseases of the digestive system
CPT/HCPCS: 71046; 80053; 85025; 93005; 93010; 96374; 96375; 99284-25; A9270; J1200; J1885; J2765

== ENCOUNTER 2023-04-08 16:28 | Emergency (ER) | payer OTHER ==
[~2023-04-08] VITALS: Ht 165.1 cm; Wt 116.1 kg
[2023-04-08 16:44] VITALS: BP 161/104
[2023-04-08] MEDS ORDERED: ACETAMINOPHEN500 MG PO (16:51)
== END 2023-04-08 17:08 | disposition home or self-care (01) ==
LOC: ER 16:28
DX: R51.9 Headache, unspecified (principal); I10 Essential (primary) hypertension; F17.210 Nicotine dependence, cigarettes, uncomplicated; Z91.09 Other allergy status, other than to drugs and biological substances; Z79.890 Hormone replacement therapy; Z79.899 Other long term (current) drug therapy
CPT/HCPCS: 96372; 99284-25; J1885

== ENCOUNTER 2023-07-18 13:42 | Emergency (ER) | payer OTHER ==
[~2023-07-18] VITALS: Ht 165.1 cm; Wt 113.4 kg
[~2023-07-18 13:42] MED LIST changes: +ACETAMINOPHEN500 MG PO; +ALBU90OI; +ATROVENT HFA12.9 GM; +FLUT1DIS8; +LOSA50; +Robaxin750 MG; +TAMS.4ER; +Toprol Xl50 MG; +VITAMIN D325 MC3
[2023-07-18 14:20] LABS: White Blood Cell Count 7.44 K/mm3 (4.00-11.30)
[2023-07-18 14:21] LABS: BASOPHILS ABSOLUTE AUTO 0.04 K/mm3 (0.00-0.23); BASOPHILS PERCENT AUTO 1 % (0-2); EOSINOPHILS ABSOLUTE AUTO 0.18 K/mm3 (0.00-0.68); EOSINOPHILS PERCENT AUTO 2 % (0-6); Hematocrit 40.8 % (37.0-53.0); Hemoglobin 13.9 g/dL (13.5-17.5); IMMATURE GRAN ABSOLUTE AUTO 0.03 K/mm3 (0.00-0.10); IMMATURE GRAN PERCENT AUTO 0 % (0-1); LYMPHOCYTES PERCENT AUTO 28 % (21-46); MONOCYTES ABSOLUTE AUTO 0.55 K/mm3 (0.16-1.47); MONOCYTES PERCENT AUTO 7 % (4-13); Mean Corpuscular HGB Conc 34.1 g/dL (31.5-36.5); Mean Corpuscular Volume 91 fL (80-100); Mean Platelet Volume 10.4 fL (9.1-12.4); NEUTROPHILS ABSOLUTE AUTO 4.54 K/mm3 (1.96-9.15); NEUTROPHILS PERCENT AUTO 61 % (41-73); Platelet Count 161 K/mm3 (150-400); RDW Coefficient Variation 13.7 % (11.7-14.2); RDW Standard Deviation 46.5 fL (35.1-46.3); Red Blood Cell Count 4.49 M/mm3 (4.30-5.90)
[2023-07-18 14:39] LABS: Albumin, Blood 3.5 g/dL (3.4-5.0); Albumin/Globulin Ratio 0.9 (0.8-1.8); Bilirubin, Total 0.3 mg/dL (0.1-1.0); Calcium, Blood 9.3 mg/dL (8.5-10.1); Globulin, Blood 4.1 g/dL (2.2-4.0); Potassium, Blood 3.5 mmol/L (3.5-5.5); Total Protein, Blood 7.6 g/dL (6.4-8.2)
[2023-07-18 14:43] LABS: Source, Urine Clean Catch
[2023-07-18 14:48] LABS: Appearance, Urine Clear (Clear); Bilirubin, Urine Neg (Neg); Blood, Urine Neg (Neg); Glucose Qualitative, Urine Neg (Neg); Ketones, Urine Neg (Neg); Leukocyte Esterase, Urine Neg (Neg); Nitrite, Urine Neg (Neg); Protein, Urine Neg (Neg); Urobilinogen, Urine NORM (Normal); pH, Urine 6.5 (5.0-8.0)
[2023-07-18 14:54] LABS: Color, Urine Pale Yellow (P-Yellow)
[2023-07-18] MEDS ORDERED: AMLODIPINE (17:05)
[2023-07-18 19:15] VITALS: BP 174/98
== END 2023-07-18 19:37 | disposition home or self-care (01) ==
LOC: ER 13:42
PROVIDERS: Student in an Organized Health Care Education/Training Program
DX: I10 Essential (primary) hypertension (principal); R51.9 Headache, unspecified; Z88.8 Allergy status to other drugs, medicaments and biological substances; Z79.899 Other long term (current) drug therapy; J44.9 Chronic obstructive pulmonary disease, unspecified; E03.9 Hypothyroidism, unspecified; K21.9 Gastro-esophageal reflux disease without esophagitis; Z87.891 Personal history of nicotine dependence
CPT/HCPCS: 70450; 71046; 80053; 81003; 84484; 85025; 93005; 93010; 99284-25

== ENCOUNTER → 2023-10-31 | Outpatient (CLI) | payer OTHER ==
[~2023-10-31] MED LIST changes: +AMLODIPINE
== END ==
LOC: LAB 11:41 → LAB SHORT 11:41
DX: E03.9 Hypothyroidism, unspecified (principal)
CPT/HCPCS: 84443

== ENCOUNTER 2024-03-11 15:59 | Emergency (ER) | payer OTHER ==
[~2024-03-11] VITALS: Ht 165.1 cm; Wt 112.0 kg
[~2024-03-11 15:59] MED LIST changes: -LOSA50; +LOSA50 PO; -Robaxin750 MG; +Robaxin750 MG PO; -TAMS.4ER; +TAMS.4ER PO; -VITAMIN D325 MC3; +VITAMIN D325 MC3 PO
[2024-03-11 17:23] LABS: Source, Urine Clean Catch
[2024-03-11 17:26] LABS: Appearance, Urine Clear (Clear); Bilirubin, Urine Neg (Neg); Blood, Urine Neg (Neg); Color, Urine Pale Yellow (P-Yellow); Glucose Qualitative, Urine Neg (Neg); Ketones, Urine Neg (Neg); Leukocyte Esterase, Urine Neg (Neg); Nitrite, Urine Neg (Neg); Protein, Urine Neg (Neg); Specific Gravity, Urine 1.005 (1.003-1.022); Urobilinogen, Urine NORM (Normal)
[2024-03-11 17:34] LABS: BASOPHILS ABSOLUTE AUTO 0.03 K/mm3 (0.00-0.23); BASOPHILS PERCENT AUTO 0 % (0-2); EOSINOPHILS PERCENT AUTO 0 % (0-6); Hematocrit 35.8 % (37.0-53.0); Hemoglobin 12.6 g/dL (13.5-17.5); IMMATURE GRAN ABSOLUTE AUTO 0.05 K/mm3 (0.00-0.10); IMMATURE GRAN PERCENT AUTO 1 % (0-1); LYMPHOCYTES ABSOLUTE AUTO 2.49 K/mm3 (0.84-5.20); LYMPHOCYTES PERCENT AUTO 26 % (21-46); MONOCYTES ABSOLUTE AUTO 0.67 K/mm3 (0.16-1.47); MONOCYTES PERCENT AUTO 7 % (4-13); Mean Corpuscular HGB 33.5 pg (26.0-34.0); Mean Corpuscular HGB Conc 35.2 g/dL (31.5-36.5); Mean Corpuscular Volume 95 fL (80-100); Mean Platelet Volume 10.5 fL (9.1-12.4); NEUTROPHILS ABSOLUTE AUTO 6.18 K/mm3 (1.96-9.15); NEUTROPHILS PERCENT AUTO 66 % (41-73); Platelet Count 170 K/mm3 (150-400); RDW Coefficient Variation 12.9 % (11.7-14.2); Red Blood Cell Count 3.76 M/mm3 (4.30-5.90); White Blood Cell Count 9.42 K/mm3 (4.00-11.30)
[2024-03-11 18:02] LABS: Albumin, Blood 3.6 g/dL (3.4-5.0); Albumin/Globulin Ratio 0.9 (0.8-1.8); Bilirubin, Total 0.5 mg/dL (0.1-1.0); Bun/Creatinine Ratio 9.7 (12.0-20.0); Calcium, Blood 9.6 mg/dL (8.5-10.1); Creatinine, Blood 1.03 mg/dL (0.60-1.20); Potassium, Blood 3.5 mmol/L (3.5-5.5); Total Protein, Blood 7.6 g/dL (6.4-8.2)
[2024-03-11] MEDS ORDERED: FLONASE SENSIM5.9 M1 (21:30)
[2024-03-11] MEDS ORDERED: FAMO20 PO (21:31)
[2024-03-11] MEDS ORDERED: Masophen500 MG PO (21:33)
[2024-03-11] MEDS ORDERED: AMLO10 PO (21:34)
[2024-03-11] MEDS ORDERED: ATOR20 PO (21:37)
[2024-03-11] MEDS ORDERED: MELO7.5 PO (21:38)
[2024-03-11] MEDS ORDERED: Methocarbamol 500 MG Tab PO ONE (21:40)
[2024-03-11] MEDS ORDERED: Ketorolac Tromethamine 15mg Vial IV ONE (21:40)
[2024-03-11] MEDS ORDERED: Vitamin B-12100 MCG PO (21:40)
[2024-03-11] MEDS ORDERED: Robaxin750 MG PO (21:58)
[2024-03-11] MEDS ORDERED: Voltaren100 GM TOP (21:58)
[2024-03-11 23:13] VITALS: BP 142/80
== END 2024-03-12 00:15 | disposition home or self-care (01) ==
LOC: ER 15:59
PROVIDERS: Physician Assistant
DX: S39.012A Strain of muscle, fascia and tendon of lower back, initial encounter (principal); X58.XXXA Exposure to other specified factors, initial encounter; I10 Essential (primary) hypertension; J44.9 Chronic obstructive pulmonary disease, unspecified; E03.9 Hypothyroidism, unspecified; E78.5 Hyperlipidemia, unspecified; K21.9 Gastro-esophageal reflux disease without esophagitis; Z87.891 Personal history of nicotine dependence; Z88.8 Allergy status to other drugs, medicaments and biological substances; Z91.048 Other nonmedicinal substance allergy status; Z79.890 Hormone replacement therapy
CPT/HCPCS: 74177; 80053; 81003; 85025; 96374-59; 99284-25; A9270; J1885; Q9967

== ENCOUNTER 2024-03-27 10:47 | Day surgery (SDC) | payer OTHER ==
[~2024-03-27] VITALS: Ht 165.1 cm; Wt 104.1 kg
[~2024-03-27 10:47] MED LIST changes: +FAMO20 PO; +FLONASE SENSIM5.9 M1; +Lactated Ringer's 1,000 ML IV ONE; +MELO7.5 PO; +Masophen500 MG PO; +Ropivacaine 0.5% HCL/PF 5 MG/ML 30ML Vial ONE; +Vitamin B-12100 MCG PO; +Voltaren100 GM TOP
[2024-03-27] MEDS ORDERED: CeFAZolin Sodium 2,000 MG VIAL ONE (11:16)
[2024-03-27] MEDS ORDERED: NS 0 ML IV ONE (11:16)
[2024-03-27] MEDS ORDERED: Lactated Ringer's 1,000 ML IV ONE (11:53)
[2024-03-27] MEDS ORDERED: FentaNYL Citrate 50 MCG/ML 2 ML Injection ONE ×2 (12:46→14:23)
[2024-03-27] MEDS ORDERED: propofoL 20 ML IV ONE (12:46)
[2024-03-27] MEDS ORDERED: Ondansetron HCl 2 MG / ML 2ML Vial ONE (12:46)
[2024-03-27] MEDS ORDERED: Dexamethasone Sod Phos 10 MG/ML 1ML VIAL ONE (12:46)
[2024-03-27] MEDS ORDERED: Ketorolac Tromethamine 30mg Vial ONE (12:46)
[2024-03-27] MEDS ORDERED: EPINEPhrine HCl 1 MG/ML 1ML Amp XX ONE (13:31)
[2024-03-27] MEDS ORDERED: OxyCODONE 5 mg/Acetamin 325 mg TABLET ONE (15:05)
[2024-03-27] MEDS ORDERED: HYDROmorphone HCl/Pf 1MG SYR ONE (15:08)
[2024-03-27 15:41] VITALS: BP 142/92
--- NOTE | 2024-03-27 16:02 | NUR ---
03/27/24 1608 MANNY THOMAS CORDINATED MEDICATION [facility].
== END 2024-03-27 16:03 | disposition home or self-care (01) ==
LOC: ORSCSDS 10:47
PROVIDERS: Podiatrist Foot & Ankle Surgery
PROC: 0QP104Z Removal of Internal Fixation Device from Sacrum, Open Approach (ICD-10-PCS; principal; 2024-03-27 12:30)
DX: S82.891K Other fracture of right lower leg, subsequent encounter for closed fracture with nonunion (principal); T84.84XA Pain due to internal orthopedic prosthetic devices, implants and grafts, initial encounter; I10 Essential (primary) hypertension; J44.9 Chronic obstructive pulmonary disease, unspecified; Z87.891 Personal history of nicotine dependence; E03.9 Hypothyroidism, unspecified; E66.9 Obesity, unspecified; Z68.38 Body mass index [BMI] 38.0-38.9, adult; Z79.899 Other long term (current) drug therapy; F41.9 Anxiety disorder, unspecified; F32.A Depression, unspecified
CPT/HCPCS: A9270; J0171; J0690; J1100; J1171; J1885; J2405; J2704; J2795; J3010; J7120

== ENCOUNTER 2024-04-29 15:53 | Emergency (ER) | payer OTHER ==
[~2024-04-29] VITALS: Ht 167.6 cm; Wt 105.7 kg
[~2024-04-29 15:53] MED LIST changes: -Lactated Ringer's 1,000 ML IV ONE; -Ropivacaine 0.5% HCL/PF 5 MG/ML 30ML Vial ONE
[2024-04-29 18:09] LABS: BASOPHILS ABSOLUTE AUTO 0.04 K/mm3 (0.00-0.23); BASOPHILS PERCENT AUTO 1 % (0-2); EOSINOPHILS PERCENT AUTO 0 % (0-6); Hematocrit 38.2 % (37.0-53.0); Hemoglobin 13.2 g/dL (13.5-17.5); IMMATURE GRAN ABSOLUTE AUTO 0.02 K/mm3 (0.00-0.10); IMMATURE GRAN PERCENT AUTO 0 % (0-1); LYMPHOCYTES ABSOLUTE AUTO 1.71 K/mm3 (0.84-5.20); LYMPHOCYTES PERCENT AUTO 25 % (21-46); MONOCYTES ABSOLUTE AUTO 0.82 K/mm3 (0.16-1.47); MONOCYTES PERCENT AUTO 12 % (4-13); Mean Corpuscular HGB 33.2 pg (26.0-34.0); Mean Corpuscular HGB Conc 34.6 g/dL (31.5-36.5); Mean Corpuscular Volume 96 fL (80-100); Mean Platelet Volume 10.3 fL (9.1-12.4); NEUTROPHILS ABSOLUTE AUTO 4.39 K/mm3 (1.96-9.15); NEUTROPHILS PERCENT AUTO 63 % (41-73); Platelet Count 141 K/mm3 (150-400); RDW Coefficient Variation 12.5 % (11.7-14.2); RDW Standard Deviation 44.2 fL (35.1-46.3); Red Blood Cell Count 3.98 M/mm3 (4.30-5.90); White Blood Cell Count 6.98 K/mm3 (4.00-11.30)
[2024-04-29 18:28] LABS: Albumin, Blood 3.6 g/dL (3.4-5.0); Bilirubin, Total 0.6 mg/dL (0.1-1.0); Calcium, Blood 8.8 mg/dL (8.5-10.1); Creatinine, Blood 0.86 mg/dL (0.60-1.20); Globulin, Blood 3.7 g/dL (2.2-4.0); Potassium, Blood 3.4 mmol/L (3.5-5.5); Total Protein, Blood 7.3 g/dL (6.4-8.2)
[2024-04-29 19:41] LABS: Source, Urine Clean Catch
[2024-04-29 19:51] LABS: Bilirubin, Urine Neg (Neg); Blood, Urine Neg (Neg); Color, Urine Yellow (P-Yellow); Glucose Qualitative, Urine Neg (Neg); Ketones, Urine 3+ (Neg); Leukocyte Esterase, Urine Neg (Neg); Nitrite, Urine Neg (Neg); Protein, Urine 1+ (Neg); Specific Gravity, Urine 1.015 (1.003-1.022); Urobilinogen, Urine NORM (Normal)
[2024-04-29 20:08] LABS: Appearance, Urine Clear (Clear)
[2024-04-29] MEDS ORDERED: Ketorolac Tromethamine 30mg Vial IV ONE (20:40)
[2024-04-29] MEDS ORDERED: Voltaren100 GM TOP (22:34)
[2024-04-29 23:01] VITALS: BP 129/73
== END 2024-04-29 23:03 | disposition home or self-care (01) ==
LOC: ER 15:53
PROVIDERS: Student in an Organized Health Care Education/Training Program
DX: M62.830 Muscle spasm of back (principal); E86.0 Dehydration; I10 Essential (primary) hypertension; J44.9 Chronic obstructive pulmonary disease, unspecified; E03.9 Hypothyroidism, unspecified; E78.5 Hyperlipidemia, unspecified; K21.9 Gastro-esophageal reflux disease without esophagitis; Z87.11 Personal history of peptic ulcer disease; Z87.891 Personal history of nicotine dependence; Z88.8 Allergy status to other drugs, medicaments and biological substances; Z91.048 Other nonmedicinal substance allergy status; Z79.890 Hormone replacement therapy; Z79.51 Long term (current) use of inhaled steroids; Z79.1 Long term (current) use of non-steroidal anti-inflammatories (NSAID); Z79.899 Other long term (current) drug therapy; Z59.89 Other problems related to housing and economic circumstances
CPT/HCPCS: 74177; 80053; 85025; 96374-59; 99284-25; J1885; Q9967

== ENCOUNTER 2024-04-30 07:56 | Emergency (ER) | payer OTHER ==
[~2024-04-30] VITALS: Ht 167.6 cm; Wt 105.7 kg
[2024-04-30 08:30] LABS: BASOPHILS ABSOLUTE AUTO 0.03 K/mm3 (0.00-0.23); BASOPHILS PERCENT AUTO 1 % (0-2); EOSINOPHILS PERCENT AUTO 0 % (0-6); Hematocrit 38.7 % (37.0-53.0); IMMATURE GRAN ABSOLUTE AUTO 0.02 K/mm3 (0.00-0.10); IMMATURE GRAN PERCENT AUTO 0 % (0-1); LYMPHOCYTES ABSOLUTE AUTO 1.09 K/mm3 (0.84-5.20); LYMPHOCYTES PERCENT AUTO 19 % (21-46); MONOCYTES ABSOLUTE AUTO 0.72 K/mm3 (0.16-1.47); MONOCYTES PERCENT AUTO 12 % (4-13); Mean Corpuscular HGB 33.3 pg (26.0-34.0); Mean Corpuscular HGB Conc 36.2 g/dL (31.5-36.5); Mean Corpuscular Volume 92 fL (80-100); Mean Platelet Volume 10.3 fL (9.1-12.4); NEUTROPHILS ABSOLUTE AUTO 4.03 K/mm3 (1.96-9.15); NEUTROPHILS PERCENT AUTO 69 % (41-73); Platelet Count 153 K/mm3 (150-400); RDW Coefficient Variation 12.3 % (11.7-14.2); RDW Standard Deviation 41.1 fL (35.1-46.3); Red Blood Cell Count 4.21 M/mm3 (4.30-5.90); White Blood Cell Count 5.89 K/mm3 (4.00-11.30)
[2024-04-30 08:55] LABS: Albumin, Blood 3.9 g/dL (3.4-5.0); Bilirubin, Total 0.5 mg/dL (0.1-1.0); Bun/Creatinine Ratio 14.9 (12.0-20.0); Calcium, Blood 9.1 mg/dL (8.5-10.1); Creatinine, Blood 0.74 mg/dL (0.60-1.20); Globulin, Blood 3.9 g/dL (2.2-4.0); Potassium, Blood 3.3 mmol/L (3.5-5.5); Total Protein, Blood 7.8 g/dL (6.4-8.2)
[2024-04-30] MEDS ORDERED: Ketorolac Tromethamine 15mg Vial IV ONE (10:30)
[2024-04-30] MEDS ORDERED: Diazepam 5 MG / ML 2ML SYR IV ONE (10:35)
[2024-04-30] MEDS ORDERED: Dexamethasone Sod Phos 10 MG/ML 1ML VIAL IV ONE (10:45)
[2024-04-30 11:47] LABS: Source, Urine Clean Catch
[2024-04-30 11:55] LABS: Appearance, Urine Clear (Clear); Bilirubin, Urine Neg (Neg); Blood, Urine Neg (Neg); Color, Urine Yellow (P-Yellow); Glucose Qualitative, Urine Neg (Neg); Ketones, Urine 2+ (Neg); Leukocyte Esterase, Urine Neg (Neg); Nitrite, Urine Neg (Neg); Protein, Urine Neg (Neg); Specific Gravity, Urine 1.005 (1.003-1.022); Urobilinogen, Urine NORM (Normal)
[2024-04-30 13:27] VITALS: BP 162/102
== END 2024-04-30 13:27 | disposition home or self-care (01) ==
LOC: ER 07:56
PROVIDERS: Emergency Medicine
DX: M51.16 Intervertebral disc disorders with radiculopathy, lumbar region (principal); G89.29 Other chronic pain; I10 Essential (primary) hypertension; J44.9 Chronic obstructive pulmonary disease, unspecified; E78.5 Hyperlipidemia, unspecified; E03.9 Hypothyroidism, unspecified; K21.9 Gastro-esophageal reflux disease without esophagitis; Z87.891 Personal history of nicotine dependence; Z88.8 Allergy status to other drugs, medicaments and biological substances; Z91.048 Other nonmedicinal substance allergy status; Z79.51 Long term (current) use of inhaled steroids; Z79.890 Hormone replacement therapy; Z79.899 Other long term (current) drug therapy
CPT/HCPCS: 80053; 81003; 85025; 96374; 96375; 99283; J1100; J1885; J3360

== ENCOUNTER → 2024-05-27 | Outpatient (CLI) | payer OTHER ==
[2024-06-01 16:57] LABS: 3-OH-COTININE, URN, QUANT 152 ng/mL; ANABASINE, URN, QUANT <5 ng/mL; COTININE, URN, QUANT 211 ng/mL; NICOTINE, URN, QUANT 98 ng/mL
== END ==
LOC: LAB 18:34 → LAB SHORT 18:34
PROVIDERS: Family Medicine
DX: Z87.891 Personal history of nicotine dependence (principal)
CPT/HCPCS: G0480

== ENCOUNTER → 2024-08-03 | Outpatient (CLI) | payer OTHER | LOC: LAB 16:34 → LAB SHORT 16:34 | DX: R06.01 Orthopnea (principal); R06.00 Dyspnea, unspecified; R60.0 Localized edema | CPT/HCPCS: 83880 ==

== ENCOUNTER 2024-10-02 19:06 | Inpatient (IN) | payer OTHER ==
[~2024-10-02] VITALS: Ht 165.1 cm; Wt 101.8 kg
[2024-10-02] MEDS ORDERED: Metoclopramide HCl 5MG / ML 2ML Vial IV ONE (20:00)
[2024-10-02] MEDS ORDERED: Morphine Sulfate 4 MG/1 ML Injection IV ONE (20:00)
[2024-10-02 20:01] LABS: BASOPHILS ABSOLUTE AUTO 0.07 K/mm3 (0.00-0.23); BASOPHILS PERCENT AUTO 1 % (0-2); EOSINOPHILS ABSOLUTE AUTO 0.00 K/mm3 (0.00-0.68); EOSINOPHILS PERCENT AUTO 0 % (0-6); Hematocrit 36.6 % (37.0-53.0); Hemoglobin 12.5 g/dL (13.5-17.5); IMMATURE GRAN ABSOLUTE AUTO 0.09 K/mm3 (0.00-0.10); IMMATURE GRAN PERCENT AUTO 1 % (0-1); LYMPHOCYTES ABSOLUTE AUTO 3.35 K/mm3 (0.84-5.20); LYMPHOCYTES PERCENT AUTO 37 % (21-46); MONOCYTES ABSOLUTE AUTO 0.61 K/mm3 (0.16-1.47); MONOCYTES PERCENT AUTO 7 % (4-13); Mean Corpuscular HGB Conc 34.2 g/dL (31.5-36.5); Mean Corpuscular Volume 97 fL (80-100); NEUTROPHILS ABSOLUTE AUTO 4.99 K/mm3 (1.96-9.15); NEUTROPHILS PERCENT AUTO 55 % (41-73); NRBC ABSOLUTE 0.00 K/mm3 (0.00-0.02); NRBC Auto 0.0 /100 WBC (0.0-0.2); Platelet Count 204 K/mm3 (150-400); RDW Coefficient Variation 12.9 % (11.7-14.2); RDW Standard Deviation 46.2 fL (35.1-46.3)
[2024-10-02 20:21] LABS: Alanine Aminotransfer (ALT/SGP 23.0 U/L (12-78); Albumin, Blood 2.5 g/dL (3.4-5.0); Albumin/Globulin Ratio 0.7 (0.8-1.8); Anion Gap 10.0 mmol/L (3-11); Aspartate Aminotrans (AST/SGOT 16.0 U/L (12-37); Bilirubin, Total 0.2 mg/dL (0.1-1.0); Blood Urea Nitrogen 8.0 mg/dL (8-24); CO2, Blood 20.0 mmol/L (21-32); Calcium, Blood 7.8 mg/dL (8.5-10.1); Chloride, Blood 110.0 mmol/L (98-108); Creatinine, Blood 1.44 mg/dL (0.60-1.20); Globulin, Blood 3.4 g/dL (2.2-4.0); Glucose, Blood 108.0 mg/dL (70-99); Magnesium, Blood 1.4 mg/dL (1.6-2.4); Potassium, Blood 2.9 mmol/L (3.5-5.5); Sodium, Blood 137.0 mmol/L (136-145); Total Protein, Blood 5.9 g/dL (6.4-8.2)
[2024-10-02] MEDS ORDERED: Dose Adjust by Pharmacy XX STA (23:16)
[2024-10-02] MEDS ORDERED: Heparin Sodium,Porcine/0.5 NS 500 ML IV SCH (23:20)
[2024-10-02] MEDS ORDERED: Ondansetron HCl 2 MG / ML 2ML Vial IV PRN (23:50)
[2024-10-02] MEDS ORDERED: NS 1,000 ML IV SCH (23:50)
[2024-10-03] VITALS (7 sets, daily range): BP systolic 111–147; BP diastolic 71–83
[2024-10-03 00:01] LABS: Anti-Xa UFH, PHA Monitoring <0.10 IU/mL; Prothrombin Time Results 11.5 Sec (9.7-11.5)
[2024-10-03] MEDS ORDERED: Heparin Sodium 5000 Units/ML 1ML MDV IV ONE (00:45)
[2024-10-03] MEDS ORDERED: FentaNYL Citrate 50 MCG/ML 2 ML Injection IV PRN (01:15)
--- NOTE | 2024-10-03 02:53 | NUR ---
CALLED HOSPITALIST INFORMED HIM OF K+ LAB OF 2.9 TAKEN IN ER, HE HAD NOT BEEN NOTIFIED. NEW ORDERS IN EMAR.
--- NOTE | 2024-10-03 02:54 | NUR ---
CALLED PHARMACY INFORMED THEM THAT HEPARIN BOLUS WAS NOT GIVEN IN ER ORDERED. VERIFIED THAT I SHOULD STILL GIVE THE HEPARIN BOLUS NOW. PHARMACY CONFIRMED.
--- NOTE | 2024-10-03 03:04 | NUR ---
ADMIT NOTE HANDOFF RECEIVED FROM INSPECTOR OPTICAL INSTRUMENT MATIAS. PT ARRIVED TO FLOOR VIA GURNEY. TELEMETRY APPLIED: NSR @ 75 BPM. IV HEPARIN INFUSING ORDERED. SEE PREVIOUS NOTES. PT ORIENTED TO UNIT. CALL BUTTON WITHIN REACH. PERSONAL POSSESSIONS WITH PATIENT.
[2024-10-03] MEDS ORDERED: Magnesium Sulf 2 GM/Water 50ML 50 ML IV ONE (03:15)
--- NOTE | 2024-10-03 04:11 | NUR ---
SHIFT SUMMARY ADMITTED FOR PULMONARY EMBOLISM THIS SHIFT. FULL CODE. IV HEPARIN GTT INFUSING. IV MAGNESIUM INFUSING. PO K+ GIVEN. TELEMETRY: NSR @ 75 BPM. HE IS A&O X4. 1 ASSIST, REGULAR DIET, ON RA. SEE ALL PREVIOUS NOTES.
[2024-10-03] MEDS ORDERED: Formoterol/Mometasone MDI 5/200 mcg 13 GM INH SCH (07:20)
[2024-10-03] MEDS ORDERED: Albuterol HFA200 ACT/6.7 GM INH INH PRN ×2 (07:20→08:50)
[2024-10-03 08:42] LABS: Hematocrit 39.5 % (37.0-53.0); Hemoglobin 13.3 g/dL (13.5-17.5); Mean Corpuscular HGB Conc 33.7 g/dL (31.5-36.5); Mean Corpuscular Volume 96 fL (80-100); NRBC ABSOLUTE 0.00 K/mm3 (0.00-0.02); NRBC Auto 0.0 /100 WBC (0.0-0.2); Platelet Count 208 K/mm3 (150-400); RDW Coefficient Variation 13.0 % (11.7-14.2); RDW Standard Deviation 46.3 fL (35.1-46.3)
--- NOTE | 2024-10-03 09:01 | NUR ---
HEPARIN DRIP STOPPED AT 0900
[2024-10-03 09:04] LABS: BAND PERCENT MAN 1 % (0-8); BASOPHILS ABSOLUTE MAN 0.00 K/mm3 (0.00-0.23); BASOPHILS PERCENT MAN 0 % (0-2); EOSINOPHILS ABSOLUTE MAN 0.14 K/mm3 (0.00-0.68); EOSINOPHILS PERCENT MAN 2 % (0-6); LYMPHOCYTES ABSOLUTE MAN 2.74 K/mm3 (0.84-5.20); LYMPHOCYTES PERCENT MAN 38 % (21-46); MONOCYTES ABSOLUTE MAN 0.36 K/mm3 (0.16-1.47); MONOCYTES PERCENT MAN 5 % (4-13); NEUTROPHILS ABSOLUTE MAN 3.97 K/mm3 (1.96-9.15); SEG NEUTROPHILS PERCENT MAN 54 % (41-73)
[2024-10-03 09:07] LABS: Alanine Aminotransfer (ALT/SGP 23.0 U/L (12-78); Albumin, Blood 2.9 g/dL (3.4-5.0); Albumin/Globulin Ratio 0.8 (0.8-1.8); Anion Gap 5.0 mmol/L (3-11); Aspartate Aminotrans (AST/SGOT 18.0 U/L (12-37); Bilirubin, Total 0.3 mg/dL (0.1-1.0); Blood Urea Nitrogen 6.0 mg/dL (8-24); CO2, Blood 25.0 mmol/L (21-32); Calcium, Blood 8.2 mg/dL (8.5-10.1); Chloride, Blood 111.0 mmol/L (98-108); Creatinine, Blood 0.98 mg/dL (0.60-1.20); Globulin, Blood 3.7 g/dL (2.2-4.0); Glucose, Blood 111.0 mg/dL (70-99); Potassium, Blood 3.8 mmol/L (3.5-5.5); Sodium, Blood 137.0 mmol/L (136-145); Total Protein, Blood 6.6 g/dL (6.4-8.2)
--- NOTE | 2024-10-03 16:41 | NUR ---
SHIFT SUMMARY: A&OX4 THIS SHIFT. PLEASANT AND COOPERATIVE WITH CARE. PT OUT OF BED A FEW TIMES THIS SHIFT WITH A SBA TO THE BATHROOM TO URINATE. REPORTS OF PAIN AND MEDICATED PER EMAR. BED IN THE LOWEST POSITION. CALL LT WITHIN REACH.
[2024-10-04 00:39] VITALS: BP 126/75
--- NOTE | 2024-10-04 03:40 | NUR ---
ICU CLERK SUMMARY PT IS A&OX4, VSS. PT IS COMPLIANT WITH CARE AND MEDICATIONS. PT C/O 11/01 BREAKTHROUGH BACK PAIN, BUT STATED DESIRE TO SLEEP TO TAKE MIND OFF PAIN WHEN OFFERED PAIN MANAGEMENT AT THE BEGINNING OF THE SHIFT. WAS LATER GIVEN TYLENOL BY BREAK RN AND WENT BACK TO SLEEP AFTER PUNCH MACHINE OPERATOR. PT REMAINS 1PA AND ON TELE W/ RATE/RHYTHM OF SINUS BRADYCARDIA AT 54. PT DENIES ANY CHEST PAIN/DISCOMFORT. PT HAS BEEN ASLEEP FOR MOST OF THE SHIFT. CHEST RISE AND RESPIRATIONS NOTED. BED RAILS UP X 2, BED WHEELS LOCKED, BED IN LOWEST POSITION, PERSONAL BELONGINGS AND CALL LIGHT WITHIN REACH FOR SAFETY.
[2024-10-04 05:25] LABS: BASOPHILS ABSOLUTE AUTO 0.05 K/mm3 (0.00-0.23); BASOPHILS PERCENT AUTO 1 % (0-2); EOSINOPHILS ABSOLUTE AUTO 0.21 K/mm3 (0.00-0.68); EOSINOPHILS PERCENT AUTO 3 % (0-6); Hematocrit 39.1 % (37.0-53.0); Hemoglobin 13.3 g/dL (13.5-17.5); IMMATURE GRAN ABSOLUTE AUTO 0.03 K/mm3 (0.00-0.10); IMMATURE GRAN PERCENT AUTO 1 % (0-1); LYMPHOCYTES ABSOLUTE AUTO 2.26 K/mm3 (0.84-5.20); LYMPHOCYTES PERCENT AUTO 35 % (21-46); MONOCYTES ABSOLUTE AUTO 0.48 K/mm3 (0.16-1.47); MONOCYTES PERCENT AUTO 7 % (4-13); Mean Corpuscular HGB Conc 34.0 g/dL (31.5-36.5); Mean Corpuscular Volume 97 fL (80-100); NEUTROPHILS ABSOLUTE AUTO 3.44 K/mm3 (1.96-9.15); NEUTROPHILS PERCENT AUTO 53 % (41-73); NRBC ABSOLUTE 0.00 K/mm3 (0.00-0.02); NRBC Auto 0.0 /100 WBC (0.0-0.2); Platelet Count 188 K/mm3 (150-400); RDW Coefficient Variation 13.1 % (11.7-14.2); RDW Standard Deviation 47.0 fL (35.1-46.3)
[2024-10-04 05:26] VITALS: BP 134/87
[2024-10-04 05:48] LABS: Anion Gap 6.0 mmol/L (3-11); Blood Urea Nitrogen 7.0 mg/dL (8-24); CO2, Blood 24.0 mmol/L (21-32); Calcium, Blood 8.6 mg/dL (8.5-10.1); Chloride, Blood 115.0 mmol/L (98-108); Creatinine, Blood 0.99 mg/dL (0.60-1.20); Glucose, Blood 91.0 mg/dL (70-99); Magnesium, Blood 2.1 mg/dL (1.6-2.4); Potassium, Blood 4.0 mmol/L (3.5-5.5); Sodium, Blood 141.0 mmol/L (136-145)
[2024-10-04 08:36] VITALS: BP 150/85
[2024-10-04] MEDS ORDERED: ELIQUIS5 M2 PO (11:21)
--- NOTE | 2024-10-04 14:05 | NUR ---
PT AWAKE DURING SHIFT REPORT THIS AM. PLEASANT AND CO-OP. A&O, INDEPENDENT IN AND TO BTM. DR NICHOLAS AND DR TORRES BOTH IN TO SEE PT AND DISCUSS PLAN OF CARE. PT ABLE TO GO HOME. KIARA FAXED TO [employer] FOR TODAY. PT TO F/U WITH [employer] TOMORROW SCHEDULED. [employer]AXI CALLED FOR TX AND PT ASSISTED DOWN TO RIDE VIA W/C PER PROTOCOL. ALL BELONGINGS WENT WITH PT.
[2024-10-04 19:05] LABS: HOMOCYSTEINE, TOTAL 9 umol/L (0-15)
[2024-10-05 12:31] LABS: ANTITHROMBIN, ENZYM (ACTIVITY) 77 % (76-128)
[2024-10-05 16:57] LABS: B2GLYCOPROTEIN 1, IGG ANTIBODY <10 SGU (<=20); B2GLYCOPROTEIN 1, IGM ANTIBODY <10 SMU (<=20)
[2024-10-05 17:16] LABS: PROTEIN C FUNCTIONAL 77 % (83-168)
[2024-10-05 18:43] LABS: PROTEIN S AG FREE 115 % (74-147)
[2024-10-05 19:16] LABS: APC RESISTANCE 4.06 (>=2.00); FACTOR V LEIDEN BY PCR Not Done; FACV REF SPECIMEN Not Done
== END 2024-10-04 13:35 | disposition home or self-care (01) | DRG 175 ==
LOC: ER 19:06 → MEDS 23:28
PROVIDERS: Student in an Organized Health Care Education/Training Program; ADMIT Internal Medicine
DX: I26.99 Other pulmonary embolism without acute cor pulmonale (principal); J96.01 Acute respiratory failure with hypoxia; N17.9 Acute kidney failure, unspecified; I10 Essential (primary) hypertension; J44.9 Chronic obstructive pulmonary disease, unspecified; F32.A Depression, unspecified; E03.9 Hypothyroidism, unspecified; E78.5 Hyperlipidemia, unspecified; K21.9 Gastro-esophageal reflux disease without esophagitis; M54.50 Low back pain, unspecified; G89.29 Other chronic pain; F17.210 Nicotine dependence, cigarettes, uncomplicated; I95.9 Hypotension, unspecified; E87.6 Hypokalemia; D64.9 Anemia, unspecified; K70.9 Alcoholic liver disease, unspecified; Z88.8 Allergy status to other drugs, medicaments and biological substances; Z86.19 Personal history of other infectious and parasitic diseases; Z87.11 Personal history of peptic ulcer disease; Z98.890 Other specified postprocedural states; Z91.048 Other nonmedicinal substance allergy status; Z79.890 Hormone replacement therapy; Z79.899 Other long term (current) drug therapy; Z79.51 Long term (current) use of inhaled steroids; Z79.1 Long term (current) use of non-steroidal anti-inflammatories (NSAID); Z79.891 Long term (current) use of opiate analgesic
CPT/HCPCS: 36415; 71275; 76770; 80048; 80053; 83735; 83880; 84484; 85025; 85520; 85610; 85730; 93005; 93010; 94640; 94664; 94760; 96374-59; 96375-59; 99285-25; A9270; C8929; J1644; J2270; J2765; J3010; J3475; J7030; Q9957; Q9967

== ENCOUNTER 2024-11-06 10:51 | Emergency (ER) | payer OTHER ==
[~2024-11-06] VITALS: Ht 165.1 cm; Wt 101.6 kg
[~2024-11-06 10:51] MED LIST changes: +ELIQUIS5 M2 PO
[2024-11-06] MEDS ORDERED: NS 1,000 ML IV SCH (11:00)
[2024-11-06 11:30] LABS: BASOPHILS ABSOLUTE AUTO 0.03 K/mm3 (0.00-0.23); BASOPHILS PERCENT AUTO 1 % (0-2); EOSINOPHILS ABSOLUTE AUTO 0.00 K/mm3 (0.00-0.68); EOSINOPHILS PERCENT AUTO 0 % (0-6); Hematocrit 40.6 % (37.0-53.0); Hemoglobin 13.9 g/dL (13.5-17.5); IMMATURE GRAN ABSOLUTE AUTO 0.03 K/mm3 (0.00-0.10); IMMATURE GRAN PERCENT AUTO 1 % (0-1); LYMPHOCYTES ABSOLUTE AUTO 2.10 K/mm3 (0.84-5.20); LYMPHOCYTES PERCENT AUTO 39 % (21-46); MONOCYTES ABSOLUTE AUTO 0.53 K/mm3 (0.16-1.47); MONOCYTES PERCENT AUTO 10 % (4-13); Mean Corpuscular HGB Conc 34.2 g/dL (31.5-36.5); Mean Corpuscular Volume 96 fL (80-100); NEUTROPHILS ABSOLUTE AUTO 2.70 K/mm3 (1.96-9.15); NEUTROPHILS PERCENT AUTO 50 % (41-73); NRBC ABSOLUTE 0.00 K/mm3 (0.00-0.02); NRBC Auto 0.0 /100 WBC (0.0-0.2); Platelet Count 164 K/mm3 (150-400); RDW Coefficient Variation 12.7 % (11.7-14.2); RDW Standard Deviation 45.1 fL (35.1-46.3)
[2024-11-06 11:46] LABS: Anion Gap 10.0 mmol/L (3-11); Blood Urea Nitrogen 15.0 mg/dL (8-24); CO2, Blood 22.0 mmol/L (21-32); Calcium, Blood 8.6 mg/dL (8.5-10.1); Chloride, Blood 108.0 mmol/L (98-108); Creatinine, Blood 1.18 mg/dL (0.60-1.20); Glucose, Blood 91.0 mg/dL (70-99); Magnesium, Blood 2.1 mg/dL (1.6-2.4); Potassium, Blood 3.6 mmol/L (3.5-5.5); Sodium, Blood 136.0 mmol/L (136-145)
[2024-11-06] MEDS ORDERED: OMEP20ER PO (12:23)
[2024-11-06] MEDS ORDERED: ACET500 PO (12:29)
[2024-11-06 12:30] VITALS: BP 98/65
== END 2024-11-06 12:49 | disposition home or self-care (01) ==
LOC: ER 10:51
PROVIDERS: Emergency Medicine
DX: S06.9X1A Unspecified intracranial injury with loss of consciousness of 30 minutes or less, initial encounter (principal); I10 Essential (primary) hypertension; J44.9 Chronic obstructive pulmonary disease, unspecified; K21.9 Gastro-esophageal reflux disease without esophagitis; F17.210 Nicotine dependence, cigarettes, uncomplicated; Z91.09 Other allergy status, other than to drugs and biological substances; Z88.8 Allergy status to other drugs, medicaments and biological substances; Z79.899 Other long term (current) drug therapy; Z79.01 Long term (current) use of anticoagulants; W22.8XXA Striking against or struck by other objects, initial encounter
CPT/HCPCS: 70450; 71045; 72125; 80048; 80320; 83735; 85025; 93005; 93010; 99285-25; A9270; L0160

== ENCOUNTER 2024-11-21 02:13 | Emergency (ER) | payer OTHER ==
[~2024-11-21] VITALS: Ht 180.3 cm; Wt 108.9 kg
[~2024-11-21 02:13] MED LIST changes: +ACET500 PO
[2024-11-21 03:57] LABS: BASOPHILS ABSOLUTE AUTO 0.05 K/mm3 (0.00-0.23); BASOPHILS PERCENT AUTO 1 % (0-2); EOSINOPHILS ABSOLUTE AUTO 0.00 K/mm3 (0.00-0.68); EOSINOPHILS PERCENT AUTO 0 % (0-6); Hematocrit 44.7 % (37.0-53.0); Hemoglobin 15.4 g/dL (13.5-17.5); IMMATURE GRAN ABSOLUTE AUTO 0.04 K/mm3 (0.00-0.10); IMMATURE GRAN PERCENT AUTO 1 % (0-1); LYMPHOCYTES ABSOLUTE AUTO 2.70 K/mm3 (0.84-5.20); LYMPHOCYTES PERCENT AUTO 32 % (21-46); MONOCYTES ABSOLUTE AUTO 0.43 K/mm3 (0.16-1.47); MONOCYTES PERCENT AUTO 5 % (4-13); Mean Corpuscular HGB Conc 34.5 g/dL (31.5-36.5); Mean Corpuscular Volume 96 fL (80-100); NEUTROPHILS ABSOLUTE AUTO 5.23 K/mm3 (1.96-9.15); NEUTROPHILS PERCENT AUTO 62 % (41-73); NRBC ABSOLUTE 0.00 K/mm3 (0.00-0.02); NRBC Auto 0.0 /100 WBC (0.0-0.2); Platelet Count 185 K/mm3 (150-400); RDW Coefficient Variation 12.7 % (11.7-14.2); RDW Standard Deviation 45.1 fL (35.1-46.3)
[2024-11-21 04:17] LABS: Alanine Aminotransfer (ALT/SGP 36.0 U/L (12-78); Albumin, Blood 4.1 g/dL (3.4-5.0); Albumin/Globulin Ratio 1.0 (0.8-1.8); Anion Gap 9.0 mmol/L (3-11); Aspartate Aminotrans (AST/SGOT 23.0 U/L (12-37); Bilirubin, Total 0.2 mg/dL (0.1-1.0); Blood Urea Nitrogen 9.0 mg/dL (8-24); CO2, Blood 24.0 mmol/L (21-32); Calcium, Blood 8.6 mg/dL (8.5-10.1); Chloride, Blood 110.0 mmol/L (98-108); Creatinine, Blood 1.0 mg/dL (0.60-1.20); Ethanol (Alcohol), Blood, Med 294.0 mg/dL; Globulin, Blood 4.3 g/dL (2.2-4.0); Glucose, Blood 115.0 mg/dL (70-99); Magnesium, Blood 2.4 mg/dL (1.6-2.4); Potassium, Blood 3.8 mmol/L (3.5-5.5); Sodium, Blood 139.0 mmol/L (136-145); Total Protein, Blood 8.4 g/dL (6.4-8.2)
[2024-11-21 11:00] VITALS: BP 157/85
== END 2024-11-21 11:15 | disposition home or self-care (01) ==
LOC: ER 02:13
PROVIDERS: Emergency Medicine
DX: F10.129 Alcohol abuse with intoxication, unspecified (principal); I10 Essential (primary) hypertension; J44.9 Chronic obstructive pulmonary disease, unspecified; K21.9 Gastro-esophageal reflux disease without esophagitis; E03.9 Hypothyroidism, unspecified; F17.210 Nicotine dependence, cigarettes, uncomplicated; Z79.51 Long term (current) use of inhaled steroids; Z79.899 Other long term (current) drug therapy; Z88.8 Allergy status to other drugs, medicaments and biological substances
CPT/HCPCS: 70450; 72125; 80053; 80320; 83605; 83735; 84484; 85025; 93005; 93010; 99284-25

== ENCOUNTER 2025-02-05 19:43 | Emergency (ER) | payer OTHER ==
[~2025-02-05] VITALS: Ht 165.1 cm; Wt 102.5 kg
[2025-02-05] MEDS ORDERED: NS 1,000 ML IV SCH (20:25)
[2025-02-05 20:48] LABS: BASOPHILS ABSOLUTE AUTO 0.06 K/mm3 (0.00-0.23); BASOPHILS PERCENT AUTO 1 % (0-2); EOSINOPHILS ABSOLUTE AUTO 0.04 K/mm3 (0.00-0.68); EOSINOPHILS PERCENT AUTO 0 % (0-6); Hematocrit 40.3 % (37.0-53.0); Hemoglobin 13.9 g/dL (13.5-17.5); IMMATURE GRAN ABSOLUTE AUTO 0.04 K/mm3 (0.00-0.10); IMMATURE GRAN PERCENT AUTO 0 % (0-1); LYMPHOCYTES ABSOLUTE AUTO 3.57 K/mm3 (0.84-5.20); LYMPHOCYTES PERCENT AUTO 32 % (21-46); MONOCYTES ABSOLUTE AUTO 0.68 K/mm3 (0.16-1.47); MONOCYTES PERCENT AUTO 6 % (4-13); Mean Corpuscular HGB Conc 34.5 g/dL (31.5-36.5); Mean Corpuscular Volume 95 fL (80-100); NEUTROPHILS ABSOLUTE AUTO 6.66 K/mm3 (1.96-9.15); NEUTROPHILS PERCENT AUTO 60 % (41-73); NRBC ABSOLUTE 0.00 K/mm3 (0.00-0.02); NRBC Auto 0.0 /100 WBC (0.0-0.2); Platelet Count 198 K/mm3 (150-400); RDW Coefficient Variation 12.8 % (11.7-14.2); RDW Standard Deviation 44.5 fL (35.1-46.3)
[2025-02-05 21:30] LABS: Alanine Aminotransfer (ALT/SGP 33.0 U/L (12-78); Albumin, Blood 3.8 g/dL (3.4-5.0); Albumin/Globulin Ratio 1.0 (0.8-1.8); Anion Gap 14.0 mmol/L (3-11); Aspartate Aminotrans (AST/SGOT 22.0 U/L (12-37); Bilirubin, Total 0.3 mg/dL (0.1-1.0); Blood Urea Nitrogen 12.0 mg/dL (8-24); CO2, Blood 19.0 mmol/L (21-32); Calcium, Blood 8.9 mg/dL (8.5-10.1); Chloride, Blood 107.0 mmol/L (98-108); Creatinine, Blood 1.34 mg/dL (0.60-1.20); Globulin, Blood 3.7 g/dL (2.2-4.0); Glucose, Blood 108.0 mg/dL (70-99); Potassium, Blood 3.5 mmol/L (3.5-5.5); Sodium, Blood 136.0 mmol/L (136-145); Total Protein, Blood 7.5 g/dL (6.4-8.2)
[2025-02-05 21:31] LABS: Prothrombin Time Results 11.2 Sec (9.7-11.5)
[2025-02-05] MEDS ORDERED: Pantoprazole Sodium 40 MG Injection IV ONE (21:45)
[2025-02-05] MEDS ORDERED: Sucralfate 1000MG / 10ML UD BTL PO ONE (22:50)
[2025-02-05] MEDS ORDERED: Protonix40 MG PO (23:43)
[2025-02-06 00:27] VITALS: BP 124/64
== END 2025-02-06 00:27 | disposition home or self-care (01) ==
LOC: ER 19:43
PROVIDERS: Student in an Organized Health Care Education/Training Program
DX: K29.70 Gastritis, unspecified, without bleeding (principal); E86.0 Dehydration; E87.20 Acidosis, unspecified; I10 Essential (primary) hypertension; J44.9 Chronic obstructive pulmonary disease, unspecified; K21.9 Gastro-esophageal reflux disease without esophagitis; Z88.8 Allergy status to other drugs, medicaments and biological substances; Z79.899 Other long term (current) drug therapy; Z79.01 Long term (current) use of anticoagulants
CPT/HCPCS: 74177; 80053; 83605; 83880; 85025; 85610; 85730; 87040; 93005; 93010; 96361; 96374-59; 99284-25; A9270; J2470; J7030; Q9967